=== PATIENT | female | born 1960 | race American Indian/Alaskan Native ===

== ENCOUNTER 2017-12-24 18:04 | Inpatient (IN) | payer OTHER ==
[2017-12-24] MEDS ORDERED: NACL 0.9% 1000 ML 1,000 ML ONE (18:21)
[2017-12-24] MEDS ORDERED: NACL 0.9% 1000 ML 1,000 ML IV ONE ×2 (18:22→21:04)
[2017-12-24] MEDS ORDERED: ZOFRAN IV ONE (18:22)
--- NOTE | 2017-12-24 18:26 | Emergency Department Report ---
ED Altered Mental Status HPI - General Chief Complaint: Altered Mental Status Stated Complaint: MH/1013 Time Seen by Provider: 12/24/17 18:21 Source: EMS Mode of arrival: Stretcher Limitations: Altered Mental Status - History of Present Illness Initial Comments: Patient is 57 years old female, brought in via EMS from [facility] for evaluation of altered mental status and decreased responsiveness for the last 2 days. Facility staff stated that the patient is not acting herself for the last 2 days with decreased by mouth intake. Patient was admitted for acute psychosis. Patient is not communicating so history is limited to EMS and the facility report. MD Complaint: altered mental status, decreased responsiveness -: days(s) (2 days) Severity: moderate - Related Data Home Medications Medication Instructions Recorded Confirmed Last Taken Benzonatate 200 mg PO TID PRN 12/24/17 12/24/17 Unknown Benztropine [Cogentin] 0.5 mg PO BID 12/24/17 12/24/17 Unknown Benztropine [Cogentin] 1 mg PO Q4-6H PRN 12/24/17 12/24/17 Unknown Haloperidol [Haldol] 5 mg PO Q8HR PRN 12/24/17 12/24/17 Unknown Hydroxyzine HCl [hydrOXYzine] 50 mg PO Q8HR PRN 12/24/17 12/24/17 Unknown Lisinopril [Zestril TAB] 20 mg PO QDAY 12/24/17 12/24/17 Unknown [place] Carbonate 450 mg PO BID 12/24/17 12/24/17 Unknown Loperamide [Imodium] 2 mg PO PRN PRN 12/24/17 12/24/17 Unknown Magnesium Hydroxide [Milk of 30 ml PO Q24HR PRN 12/24/17 12/24/17 Unknown Magnesia] Meloxicam [Mobic] 7.5 mg PO QAM 12/24/17 12/24/17 Unknown Promethazine [Phenergan TAB] 25 mg IM Q4-6H PRN 12/24/17 12/24/17 Unknown cloNIDine [Catapres] 0.1 mg PO Q8HR PRN 12/24/17 12/24/17 Unknown diphenhydrAMINE [Benadryl] 50 mg IM Q4-6H PRN 12/24/17 12/24/17 Unknown metFORMIN XR [Glucophage XR] 500 mg PO QAM 12/24/17 12/24/17 Unknown risperiDONE [RisperiDONE] 1 mg PO BID 12/24/17 12/24/17 Unknown traZODone [Desyrel] 50 mg PO QHS PRN 12/24/17 12/24/17 Unknown Allergies Allergy/AdvReac Type Severity Reaction Status Date / Time No Known Allergies Allergy Unverified 12/24/17 18:18 ED Review of Systems ROS: Stated complaint: MH/1013 Other details as noted in HPI Comment: Unobtainable due to pts medical conditions ED Past Medical Hx - Past Medical History Previous Medical History?: Yes Hx Hypertension: Yes Hx Diabetes: Yes Hx Psychiatric Treatment: Yes (Bipolar) - Social History Smoking Status: Unknown if ever smoked - Medications Home Medications: Home Medications Medication Instructions Recorded Confirmed Last Taken Type Benzonatate 200 mg PO TID PRN 12/24/17 12/24/17 Unknown History Benztropine [Cogentin] 0.5 mg PO BID 12/24/17 12/24/17 Unknown History Benztropine [Cogentin] 1 mg PO Q4-6H PRN 12/24/17 12/24/17 Unknown History Haloperidol [Haldol] 5 mg PO Q8HR PRN 12/24/17 12/24/17 Unknown History Hydroxyzine HCl [hydrOXYzine] 50 mg PO Q8HR PRN 12/24/17 12/24/17 Unknown History Lisinopril [Zestril TAB] 20 mg PO QDAY 12/24/17 12/24/17 Unknown History [place] Carbonate 450 mg PO BID 12/24/17 12/24/17 Unknown History Loperamide [Imodium] 2 mg PO PRN PRN 12/24/17 12/24/17 Unknown History Magnesium Hydroxide [Milk of 30 ml PO Q24HR PRN 12/24/17 12/24/17 Unknown History Magnesia] Meloxicam [Mobic] 7.5 mg PO QAM 12/24/17 12/24/17 Unknown History Promethazine [Phenergan TAB] 25 mg IM Q4-6H PRN 12/24/17 12/24/17 Unknown History cloNIDine [Catapres] 0.1 mg PO Q8HR PRN 12/24/17 12/24/17 Unknown History diphenhydrAMINE [Benadryl] 50 mg IM Q4-6H PRN 12/24/17 12/24/17 Unknown History metFORMIN XR [Glucophage XR] 500 mg PO QAM 12/24/17 12/24/17 Unknown History risperiDONE [RisperiDONE] 1 mg PO BID 12/24/17 12/24/17 Unknown History traZODone [Desyrel] 50 mg PO QHS PRN 12/24/17 12/24/17 Unknown History ED Physical Exam - General Limitations: Altered Mental Status General appearance: alert - Head Head exam: Present: atraumatic, normocephalic, normal inspection - Eye Eye exam: Present: normal appearance, PERRL - ENT ENT exam: Present: normal exam, mucous membranes dry - Neck Neck exam: Present: normal inspection, full ROM. Absent: tenderness, meningismus, lymphadenopathy, thyromegaly - Respiratory Respiratory exam: Present: normal lung sounds bilaterally. Absent: respiratory distress, wheezes, rales, rhonchi, stridor, chest wall tenderness, accessory muscle use, decreased breath sounds, prolonged expiratory - Cardiovascular Cardiovascular Exam: Present: regular rate, normal rhythm, normal heart sounds - GI/Abdominal GI/Abdominal exam: Present: soft, tenderness (diffuse tenderness), normal bowel sounds. Absent: distended, guarding, rebound, rigid, diminished bowel sounds, organomegaly, mass, bruit, pulsatile mass, hernia - Extremities Exam Extremities exam: Present: normal inspection, full ROM, normal capillary refill - Back Exam Back exam: Present: normal inspection, full ROM. Absent: tenderness, CVA tenderness (R), CVA tenderness (L), muscle spasm, paraspinal tenderness, vertebral tenderness - Neurological Exam Neurological exam: Present: alert, oriented X3, CN II-XII intact, normal gait, reflexes normal - Skin Skin exam: Present: warm, dry, intact ED Course Vital Signs 12/24/17 12/24/17 12/24/17 18:14 19:08 19:16 Temperature 99.7 F H Pulse Rate 78 75 82 Respiratory 16 16 21 Rate Blood Pressure 94/58 92/43 Blood Pressure [Right] O2 Sat by Pulse 100 98 99 Oximetry 12/24/17 12/24/17 12/24/17 19:30 19:32 19:45 Temperature Pulse Rate 79 71 Respiratory 16 15 Rate Blood Pressure 92/43 116/53 Blood Pressure 108/52 [Right] O2 Sat by Pulse 99 99 98 Oximetry 12/24/17 20:00 Temperature Pulse Rate 71 Respiratory 17 Rate Blood Pressure 113/53 Blood Pressure [Right] O2 Sat by Pulse 99 Oximetry - Lab Data Result diagrams: 12/24/17 18:31 12/24/17 18:31 Lab Results 12/24/17 12/24/17 12/24/17 Range/Units 18:19 18:19 18:31 WBC 9.8 (4.5-11.0) K/mm3 RBC 4.39 (3.65-5.03) M/mm3 Hgb 12.9 (10.1-14.3) gm/dl Hct 40.8 (30.3-42.9) % MCV 93 (79-97) fl MCH 30 (28-32) pg MCHC 32 (30-34) % RDW 13.5 (13.2-15.2) % Plt Count 241 (140-440) K/mm3 Lymph % (Auto) 14.3 (13.4-35.0) % Edd[place] % (Auto) 12.1 H (0.0-7.3) % Eos % (Auto) 1.6 (0.0-4.3) % Baso % (Auto) 1.0 (0.0-1.8) % Lymph # 1.4 (1.2-5.4) K/mm3 Eddy # 1.2 H (0.0-0.8) K/mm3 Eos # 0.2 (0.0-0.4) K/mm3 Baso # 0.1 (0.0-0.1) K/mm3 Seg Neutrophils % 71.0 H (40.0-70.0) % Seg Neutrophils # 7.0 (1.8-7.7) K/mm3 Sodium (137-145) mmol/L Potassium (3.6-5.0) mmol/L Chloride (98-107) mmol/L Carbon Dioxide (22-30) mmol/L Anion Gap mmol/L BUN (7-17) mg/dL Creatinine (0.7-1.2) mg/dL Estimated GFR ml/min BUN/Creatinine Ratio % Glucose (65-100) mg/dL Lactic Acid (0.7-2.0) mmol/L Calcium (8.4-10.2) mg/dL Total Bilirubin (0.1-1.2) mg/dL AST (5-40) units/L ALT (7-56) units/L Alkaline Phosphatase (35-129) units/L Troponin T (0.00-0.029) ng/mL Total Protein (6.3-8.2) g/dL Albumin (3.9-5) g/dL Albumin/Globulin Ratio % Lipase (13-60) units/L Urine Color Yellow (Yellow) Urine Turbidity Clear (Clear) Urine pH 5.0 (5.0-7.0) Ur Specific [place] 1.018 (1.003-1.030) Urine Protein <15 mg/dl (Negative) mg/dL Urine Glucose (UA) Neg (Negative) mg/dL Urine Ketones Tr (Negative) mg/dL Urine Blood Neg (Negative) Urine Nitrite Neg (Negative) Urine Bilirubin Neg (Negative) Urine Urobilinogen < 2.0 (<2.0) mg/dL Ur Leukocyte Esterase Neg (Negative) Urine WBC (Auto) 1.0 (0.0-6.0) /HPF Urine RBC (Auto) 1.0 (0.0-6.0) /HPF Hyaline Casts 3 /LPF Urine HCG, Qual Negative (Negative) 12/24/17 12/24/17 12/24/17 Range/Units 18:31 18:31 18:31 WBC (4.5-11.0) K/mm3 RBC (3.65-5.03) M/mm3 Hgb (10.1-14.3) gm/dl Hct (30.3-42.9) % MCV (79-97) fl MCH (28-32) pg MCHC (30-34) % RDW (13.2-15.2) % Plt Count (140-440) K/mm3 Lymph % (Auto) (13.4-35.0) % Eddy % (Auto) (0.0-7.3) % Eos % (Auto) (0.0-4.3) % Baso % (Auto) (0.0-1.8) % Lymph # (1.2-5.4) K/mm3 Eddy # (0.0-0.8) K/mm3 Eos # (0.0-0.4) K/mm3 Baso # (0.0-0.1) K/mm3 Seg Neutrophils % (40.0-70.0) % Seg Neutrophils # (1.8-7.7) K/mm3 Sodium 132 L (137-145) mmol/L Potassium 3.6 (3.6-5.0) mmol/L Chloride 96.0 L (98-107) mmol/L Carbon Dioxide 17 L (22-30) mmol/L Anion Gap 23 mmol/L BUN 49 H (7-17) mg/dL Creatinine 2.9 H (0.7-1.2) mg/dL Estimated GFR 17 ml/min BUN/Creatinine Ratio 17 % Glucose 131 H (65-100) mg/dL Lactic Acid 2.00 (0.7-2.0) mmol/L Calcium 9.2 (8.4-10.2) mg/dL Total Bilirubin 0.30 (0.1-1.2) mg/dL AST 18 (5-40) units/L ALT 31 (7-56) units/L Alkaline Phosphatase 118 (35-129) units/L Troponin T < 0.010 (0.00-0.029) ng/mL Total Protein 6.8 (6.3-8.2) g/dL Albumin 3.5 L (3.9-5) g/dL Albumin/Globulin Ratio 1.1 % Lipase 139 H (13-60) units/L Urine Color (Yellow) Urine Turbidity (Clear) Urine pH (5.0-7.0) Ur Specific [place] (1.003-1.030) Urine Protein (Negative) mg/dL Urine Glucose (UA) (Negative) mg/dL Urine Ketones (Negative) mg/dL Urine Blood (Negative) Urine Nitrite (Negative) Urine Bilirubin (Negative) Urine Urobilinogen (<2.0) mg/dL Ur Leukocyte Esterase (Negative) Urine WBC (Auto) (0.0-6.0) /HPF Urine RBC (Auto) (0.0-6.0) /HPF Hyaline Casts /LPF Urine HCG, Qual (Negative) 12/24/17 Range/Units 19:48 WBC (4.5-11.0) K/mm3 RBC (3.65-5.03) M/mm3 Hgb (10.1-14.3) gm/dl Hct (30.3-42.9) % MCV (79-97) fl MCH (28-32) pg MCHC (30-34) % RDW (13.2-15.2) % Plt Count (140-440) K/mm3 Lymph % (Auto) (13.4-35.0) % Eddy % (Auto) (0.0-7.3) % Eos % (Auto) (0.0-4.3) % Baso % (Auto) (0.0-1.8) % Lymph # (1.2-5.4) K/mm3 Eddy # (0.0-0.8) K/mm3 Eos # (0.0-0.4) K/mm3 Baso # (0.0-0.1) K/mm3 Seg Neutrophils % (40.0-70.0) % Seg Neutrophils # (1.8-7.7) K/mm3 Sodium (137-145) mmol/L Potassium (3.6-5.0) mmol/L Chloride (98-107) mmol/L Carbon Dioxide (22-30) mmol/L Anion Gap mmol/L BUN (7-17) mg/dL Creatinine (0.7-1.2) mg/dL Estimated GFR ml/min BUN/Creatinine Ratio % Glucose (65-100) mg/dL Lactic Acid 1.60 (0.7-2.0) mmol/L Calcium (8.4-10.2) mg/dL Total Bilirubin (0.1-1.2) mg/dL AST (5-40) units/L ALT (7-56) units/L Alkaline Phosphatase (35-129) units/L Troponin T (0.00-0.029) ng/mL Total Protein (6.3-8.2) g/dL Albumin (3.9-5) g/dL Albumin/Globulin Ratio % Lipase (13-60) units/L Urine Color (Yellow) Urine Turbidity (Clear) Urine pH (5.0-7.0) Ur Specific [place] (1.003-1.030) Urine Protein (Negative) mg/dL Urine Glucose (UA) (Negative) mg/dL Urine Ketones (Negative) mg/dL Urine Blood (Negative) Urine Nitrite (Negative) Urine Bilirubin (Negative) Urine Urobilinogen (<2.0) mg/dL Ur Leukocyte Esterase (Negative) Urine WBC (Auto) (0.0-6.0) /HPF Urine RBC (Auto) (0.0-6.0) /HPF Hyaline Casts /LPF Urine HCG, Qual (Negative) - EKG Data -: EKG Interpreted by In EKG shows normal: sinus rhythm Rate: normal Interpretation: no acute changes - Radiology Data Radiology results: report reviewed Referring Physician: ORLIN CHRISTENSEN Patient Name: ELLIOT CHAN Date of : 1960 Sex: Female Report Date: 2017-12-24 Report Status: Finalized Findings [facility] [address] [place] [address] Cat Scan Report Signed Patient: ELLIOT CHAN MR#: [id number] : 1960 Acct:[id number] Age/Sex: 57 / F ADM Date: 12/24/17 Loc: ED Attending Dr: Ordering Physician: ORLIN CHRISTENSEN Date of Service: 12/24/17 Procedure(s): CT abdomen pelvis wo con Accession Number(s): [id number] cc: ORLIN CHRISTENSEN FINAL REPORT EXAM: CT A/P CLINICAL INDICATIONS: Abdomen Pain FINDINGS: Unenhanced CT of the abdomen and pelvis was performed. The heart is mildly enlarged. The lung bases appear clear. Abdomen: There is fatty infiltration of the liver without suspect focal hepatic lesion. The spleen is normal in size. There is a low-density left adrenal nodule consistent with adenoma 1.4 cm. The right adrenal is unremarkable. There is no renal or ureteral calculus. No focal pancreatic lesion is seen. There is no small or large bowel obstruction. Pelvis: There is a normal appendix. There is no evidence of diverticulitis. The uterus, adnexa and urinary bladder are within normal limits. There is no free air. There is mild colonic wall thickening which could represent underdistention or colitis. IMPRESSION: CARDIOMEGALY ABDOMEN: FATTY INFILTRATION OF THE LIVER LEFT ADRENAL ADENOMA NO BOWEL OBSTRUCTION PELVIS: NORMAL APPENDIX NO EVIDENCE OF DIVERTICULITIS MILD COLONIC WALL THICKENING, UNDERDISTENTION VERSUS COLITIS Transcribed By: JORGE Dictated By: HERBER GANDARA MD Electronically Authenticated By: HERBER GANDARA MD Signed Date/Time: 12/24/171642 DD/ 42 TD/TT: 12/24/171642 Referring Physician: ORLIN CHRISTENSEN Patient Name: ELLIOT CHAN Date of : 1960 Sex: Female Report Date: 2017-12-24 Report Status: Finalized Findings [facility] [address] [place] [address] Cat Scan Report Signed Patient: ELLIOT CHAN MR#: [id number] : 1960 Acct:[id number] Age/Sex: 57 / F ADM Date: 12/24/17 Loc: ED Attending Dr: Ordering Physician: ORLIN CHRISTENSEN Date of Service: 12/24/17 Procedure(s): CT head/brain wo con Accession Number(s): [id number] cc: ORLIN CHRISTENSEN FINAL REPORT PROCEDURE: CT HEAD/BRAIN WO CON TECHNIQUE: Computerized tomography of the head was performed without contrast material. HISTORY: AMS COMPARISON: No prior studies are available for comparison. FINDINGS: Brain: Brain density appears normal. No evidence of intracranial hemorrhage. No parenchymal hemorrhage, mass lesions or mass effect are seen. No abnormal extraxial fluid collects or masses are seen. Ventricles: Ventricles are normal size and are midline. Bone Windows: No evidence of skull fracture. Paranasal sinuses: Clear Mastoid air cells: Clear IMPRESSION: Negative examination Transcribed By: DFN Dictated By: TERESA NEWBERRY MD Electronically Authenticated By: TERESA NEWBERRY MD Signed Date/Time: 12/24/171613 DD/ 13 TD/TT: 12/24/171613 - Medical Decision Making Discussed with Dr. Contreras, presented the patient to him, he agreed to admit the patient to his service. Critical care attestation.: If time is entered above; I have spent that time in minutes in the direct care of this critically ill patient, excluding procedure time. ED Disposition Clinical Impression: Altered mental status, Abdominal pain, Acute renal failure, Acute psychosis Disposition: OP ADMIT IP TO THIS HOSP Is pt being admited?: Yes Condition: Stable Referrals: CAREN CARSON MD [Primary Care Provider] - 3-5 Days
[2017-12-24] MEDS ORDERED: NACL ONE (18:32)
[2017-12-24 18:55] LABS: Basophils # (Auto) 0.1 K/mm3 (0.0-0.1); Eosinophils # (Auto) 0.2 K/mm3 (0.0-0.4); Eosinophils % (Auto) 1.6 % (0.0-4.3); Hematocrit 40.8 % (30.3-42.9); Hemoglobin 12.9 gm/dl (10.1-14.3); Lymphocytes # (Auto) 1.4 K/mm3 (1.2-5.4); Lymphocytes % (Auto) 14.3 % (13.4-35.0); Mean Corpuscular HGB Conc 32 % (30-34); Mean Corpuscular Hemoglobin 30 pg (28-32); Mean Corpuscular Volume 93 fl (79-97); Monocytes # (Auto) 1.2 K/mm3 (0.0-0.8); Monocytes % (Auto) 12.1 % (0.0-7.3); Platelet Count 241 K/mm3 (140-440); Red Blood Count 4.39 M/mm3 (3.65-5.03); Red Cell Distribution Width 13.5 % (13.2-15.2)
[2017-12-24 19:09] LABS: Alanine Aminotransferase 31 units/L (7-56); Albumin 3.5 g/dL (3.9-5); BUN/Creatinine Ratio 17; Blood Urea Nitrogen 49 mg/dL (7-17); Calcium 9.2 mg/dL (8.4-10.2); Hemolysis Index 2
[2017-12-24 19:13] LABS: Bilirubin,Urine NEG (Negative); Blood,Urine NEG (Negative); Color,Urine Yellow (Yellow); Hyaline Casts,Urine 3 /LPF; Protein,Urine <15 mg/dL mg/dL (Negative); Urobilinogen,Urine < 2.0 mg/dL (<2.0)
[2017-12-24 19:58] LABS: HCG Qualitative,Urine Negative (Negative)
--- NOTE | 2017-12-24 20:19 | Cat Scan Report ---
FINAL REPORT PROCEDURE: CT HEAD/BRAIN WO CON TECHNIQUE: Computerized tomography of the head was performed without contrast material. HISTORY: AMS COMPARISON: No prior studies are available for comparison. FINDINGS: Brain: Brain density appears normal. No evidence of intracranial hemorrhage. No parenchymal hemorrhage, mass lesions or mass effect are seen. No abnormal extraxial fluid collects or masses are seen. Ventricles: Ventricles are normal size and are midline. Bone Windows: No evidence of skull fracture. Paranasal sinuses: Clear Mastoid air cells: Clear IMPRESSION: Negative examination
--- NOTE | 2017-12-24 20:48 | Cat Scan Report ---
FINAL REPORT EXAM: CT A/P CLINICAL INDICATIONS: Abdomen Pain FINDINGS: Unenhanced CT of the abdomen and pelvis was performed. The heart is mildly enlarged. The lung bases appear clear. Abdomen: There is fatty infiltration of the liver without suspect focal hepatic lesion. The spleen is normal in size. There is a low-density left adrenal nodule consistent with adenoma 1.4 cm. The right adrenal is unremarkable. There is no renal or ureteral calculus. No focal pancreatic lesion is seen. There is no small or large bowel obstruction. Pelvis: There is a normal appendix. There is no evidence of diverticulitis. The uterus, adnexa and urinary bladder are within normal limits. There is no free air. There is mild colonic wall thickening which could represent underdistention or colitis. IMPRESSION: CARDIOMEGALY ABDOMEN: FATTY INFILTRATION OF THE LIVER LEFT ADRENAL ADENOMA NO BOWEL OBSTRUCTION PELVIS: NORMAL APPENDIX NO EVIDENCE OF DIVERTICULITIS MILD COLONIC WALL THICKENING, UNDERDISTENTION VERSUS COLITIS
[2017-12-24] MEDS ORDERED: MILK OF MAGNESIA PO PRN (21:47)
[2017-12-24] MEDS ORDERED: DULCOLAX PR PRN (21:47)
[2017-12-24] MEDS ORDERED: TYLENOL PO PRN (21:47)
[2017-12-24] MEDS ORDERED: ZOFRAN IV PRN (21:47)
--- NOTE | 2017-12-24 21:47 | History and Physical Report ---
History of Present Illness Date of examination: 12/24/17 Chief complaint: Decreased oral intake History of present illness: 57 year old -[place] female with past medical history significant for bipolar disorder, diabetes mellitus, hypertension, neuropathy brought to the emergency department from [place] for the complaints of patient was not eating and drinking, with drawn for the last 2 days. The patient was not interested to talk and history was obtained from her sister. Patient is advised to [facility] a week ago after she stopped taking her bipolar medications. Patient showed improvement. Since the last 2 days patient refused to eat and drink. Patient become more withdrawn. In the emergency department had a blood pressure was very low, and had a BUN and creatinine was elevated. Patient was resuscitated with 2 bouts of normal saline and her blood pressure normalized. Patient's admitted for the management of acute renal failure. Review of system couldn't be obtained. Past History Past Medical History: diabetes, hypertension, other (bipolar disorder, neuropathy) Past Surgical History: No surgical history Social history: full code. denies: smoking, alcohol abuse, prescription drug abuse, IV drug use Family history: CAD (Father and brother), diabetes (mother and father), other ( congestive heart failure, mother and father) Medications and Allergies Allergies Allergy/AdvReac Type Severity Reaction Status Date / Time No Known Allergies Allergy Unverified 12/24/17 18:18 Home Medications Medication Instructions Recorded Confirmed Last Taken Type Benztropine [Cogentin] 0.5 mg PO BID 12/24/17 12/24/17 Unknown History Haloperidol [Haldol] 5 mg PO Q8HR PRN 12/24/17 12/24/17 Unknown History Hydroxyzine HCl [hydrOXYzine] 50 mg PO Q8HR PRN 12/24/17 12/24/17 Unknown History [place] Carbonate 450 mg PO BID 12/24/17 12/24/17 Unknown History Magnesium Hydroxide [Milk of 30 ml PO Q24HR PRN 12/24/17 12/24/17 Unknown History Magnesia] Promethazine [Phenergan TAB] 25 mg IM Q4-6H PRN 12/24/17 12/24/17 Unknown History RX: Benzonatate 200 mg PO TID PRN 12/24/17 12/24/17 Unknown History RX: Benztropine [Cogentin] 1 mg PO Q4-6H PRN 12/24/17 12/24/17 Unknown History RX: Lisinopril [Zestril TAB] 20 mg PO QDAY 12/24/17 12/24/17 Unknown History RX: Loperamide [Imodium] 2 mg PO PRN PRN 12/24/17 12/24/17 Unknown History RX: Meloxicam [Mobic] 7.5 mg PO QAM 12/24/17 12/24/17 Unknown History RX: cloNIDine [Catapres] 0.1 mg PO Q8HR PRN 12/24/17 12/24/17 Unknown History RX: diphenhydrAMINE [Benadryl] 50 mg IM Q4-6H PRN 12/24/17 12/24/17 Unknown History RX: metFORMIN XR [Glucophage XR] 500 mg PO QAM 12/24/17 12/24/17 Unknown History RX: traZODone [Desyrel] 50 mg PO QHS PRN 12/24/17 12/24/17 Unknown History risperiDONE [RisperiDONE] 1 mg PO BID 12/24/17 12/24/17 Unknown History Active Meds: Active Medications Sodium Chloride (Nacl 0.9% 1000 Ml) 1,000 mls @ 125 mls/hr IV ONCE ONE Stop: 12/25/17 05:03 Last Admin: 12/24/17 21:20 Dose: 125 mls/hr Review of Systems ROS unobtainable: due to mental status (Patient is non-cooprative) Exam - Physical Exam Narrative exam: Not in cardiopulmonary distress. The patient is obese. Vital signs as documented. Head exam is unremarkable. No scleral icterus . Neck is without jugular venous distension, thyromegaly, or carotid bruits. Lungs are clear to auscultation. Cardiac exam reveals regular rate and Rhythm. First and second heart sounds normal. No murmurs, rubs or gallops. Abdominal exam reveals normal bowel sounds, no masses, no organomegaly and no aortic enlargement. Extremities are nonedematous and both femoral and pedal pulses are normal. [employer]TRAN[employer] SPECIALIST: Alert and oriented 3. No focal weakness. Psychiatry: patient was withdrawn. - Constitutional Vitals: Temp Pulse Resp BP Pulse Ox 99.7 F H 71 17 113/53 99 12/24/17 18:14 12/24/17 20:00 12/24/17 20:00 12/24/17 20:00 12/24/17 20:00 Results - Labs CBC & Chem 7: 12/24/17 18:31 12/24/17 18: Labs: Laboratory Last Values WBC 9.8 K/mm3 (4.5-11.0) 12/24/17 18: RBC 4.39 M/mm3 (3.65-5.03) 12/24/17 18: Hgb 12.9 gm/dl (10.1-14.3) 12/24/17: Hct 40.8 % (30.3-42.9) 12/24/17 18: MCV 93 fl (79-97) 12/24/17 18: MCH 30 pg (28-32) 12/24/17: MCHC 32 % (30-34) 12/24/17: RDW 13.5 % (13.2-15.2) 12/24/17 18: Plt Count 241 K/mm3 (140-440) 12/24/17 18: Lymph % (Auto) 14.3 % (13.4-35.0) 12/24/17 18: [place] % (Auto) 12.1 % (0.0-7.3) H 12/24/17 18: Eos % (Auto) 1.6 % (0.0-4.3) 12/24/17 18: Baso % (Auto) 1.0 % (0.0-1.8) 12/24/17 18: Lymph # 1.4 K/mm3 (1.2-5.4) 12/24/17 18: [place] # 1.2 K/mm3 (0.0-0.8) H 12/24/17 18: Eos # 0.2 K/mm3 (0.0-0.4) 12/24/17 18: Baso # 0.1 K/mm3 (0.0-0.1) 12/24/17 18: Seg Neutrophils % 71.0 % (40.0-70.0) H 12/24/17 18: Seg Neutrophils # 7.0 K/mm3 (1.8-7.7) 12/24/17 18: Sodium 132 mmol/L (137-145) L 12/24/17 18:31 Potassium 3.6 mmol/L (3.6-5.0) 12/24/17 18:31 Chloride 96.0 mmol/L (98-107) L 12/24/17 18:31 Carbon Dioxide 17 mmol/L (22-30) L 12/24/17 18:31 Anion Gap 23 mmol/L 12/24/17 18:31 BUN 49 mg/dL (7-17) H 12/24/17 18:31 Creatinine 2.9 mg/dL (0.7-1.2) H 12/24/17 18:31 Estimated GFR 17 ml/min 12/24/17 18: BUN/Creatinine Ratio 17 % 12/24/17 18:31 Glucose 131 mg/dL (65-100) H 12/24/17 18: Lactic Acid 1.60 mmol/L (0.7-2.0) 12/24/17 19:48 Calcium 9.2 mg/dL (8.4-10.2) 12/24/17 18: Total Bilirubin 0.30 mg/dL (0.1-1.2) 12/24/17 18:31 AST 18 units/L (5-40) 12/24/17 18: ALT 31 units/L (7-56) 12/24/17 18: Alkaline Phosphatase 118 units/L (35-129) 12/24/17 18: Troponin T < 0.010 ng/mL (0.00-0.029) 12/24/17 18: Total Protein 6.8 g/dL (6.3-8.2) 12/24/17 18: Albumin 3.5 g/dL (3.9-5) L 12/24/17 18:31 Albumin/Globulin Ratio 1.1 % 12/24/17 18: Lipase 139 units/L (13-60) H 12/24/17 18:31 Urine Color Yellow (Yellow) 12/24/17 18: Urine Turbidity Clear (Clear) 12/24/17 18: Urine pH 5.0 (5.0-7.0) 12/24/17 18: Ur Specific [place] 1.018 (1.003-1.030) 12/24/17 18: Urine Protein <15 mg/dl mg/dL (Negative) 12/24/17 18:19 Urine Glucose (UA) Neg mg/dL (Negative) 12/24/17 18:19 Urine Ketones Tr mg/dL (Negative) 12/24/17 18:19 Urine Blood Neg (Negative) 12/24/17 18:19 Urine Nitrite Neg (Negative) 12/24/17 18:19 Urine Bilirubin Neg (Negative) 12/24/17 18:19 Urine Urobilinogen < 2.0 mg/dL (<2.0) 12/24/17 18:19 Ur Leukocyte Esterase Neg (Negative) 12/24/17 18:19 Urine WBC (Auto) 1.0 /HPF (0.0-6.0) 12/24/17 18: Urine RBC (Auto) 1.0 /HPF (0.0-6.0) 12/24/17 18: Hyaline Casts 3 /LPF 12/24/17 18:19 Urine HCG, Qual Negative (Negative) 12/24/17 18:19 Assessment and Plan Assessment and plan: Acute renal failure Decreased oral intake Volume depletion Bipolar disorder Medication noncompliance Diabetes mellitus type 2 - Patient was resuscitated to do is to box of IV normal saline and we'll continue is 125 mL of normal saline per hour, will check BMP in the morning - Mental health consult placed, SSI - Appropriate home medications continued DVT prophylaxis - On heparin Disposition - Admit to medical floor. Advance Directives: Yes VTE prophylaxis?: Chemical Plan of care discussed with patient/family: Yes
[2017-12-24] MEDS ORDERED: D50W (25GM) Syringe IV PRN (21:50)
[2017-12-24] MEDS: NOVOLOG SUB-Q SCH (22:10)
[2017-12-24] MEDS ORDERED: COLACE ONE (22:21)
[2017-12-24] MEDS ORDERED: PEPCID ONE (22:21)
[2017-12-24] MEDS ORDERED: HEPARIN ONE (22:21)
[2017-12-24] MEDS ORDERED: HALDOL PO PRN (22:29)
[2017-12-24] MEDS ORDERED: DESYREL PO PRN (22:29)
[2017-12-24] MEDS ORDERED: ATARAX PO PRN (22:29)
[2017-12-24] MEDS ORDERED: TESSALON PERLES PO PRN (22:29)
[2017-12-24] MEDS ORDERED: IMODIUM PO PRN (22:29)
[2017-12-24] MEDS: COLACE PO SCH (22:58)
[2017-12-24] MEDS: HEPARIN SUB-Q SCH (22:58)
[2017-12-24] MEDS: PEPCID PO SCH (22:59)
[2017-12-25 03:28] LABS: Basophils # (Auto) 0.1 K/mm3 (0.0-0.1); Basophils % (Auto) 1.1 % (0.0-1.8); Eosinophils # (Auto) 0.3 K/mm3 (0.0-0.4); Eosinophils % (Auto) 2.9 % (0.0-4.3); Hematocrit 36.8 % (30.3-42.9); Hemoglobin 12.2 gm/dl (10.1-14.3); Lymphocytes # (Auto) 2.2 K/mm3 (1.2-5.4); Lymphocytes % (Auto) 22.8 % (13.4-35.0); Mean Corpuscular HGB Conc 33 % (30-34); Mean Corpuscular Hemoglobin 30 pg (28-32); Mean Corpuscular Volume 91 fl (79-97); Monocytes # (Auto) 1.1 K/mm3 (0.0-0.8); Monocytes % (Auto) 10.8 % (0.0-7.3); Platelet Count 209 K/mm3 (140-440); Red Blood Count 4.06 M/mm3 (3.65-5.03); Red Cell Distribution Width 13.5 % (13.2-15.2)
[2017-12-25 03:37] LABS: Calcium 8.6 mg/dL (8.4-10.2)
[2017-12-25] MEDS: NACL 0.9% 1000 ML 1,000 ML IV SCH ×2 (04:52→19:54)
[2017-12-25] MEDS: HEPARIN SUB-Q SCH ×3 (06:19→22:05)
[2017-12-25] MEDS: NOVOLOG SUB-Q SCH ×4 (08:02→22:03)
[2017-12-25] MEDS: COLACE PO SCH ×2 (09:19→22:24)
[2017-12-25] MEDS: PEPCID PO SCH (09:19)
[2017-12-25] MEDS ORDERED: RisperDAL PO SCH (10:00)
[2017-12-25] MEDS ORDERED: COGENTIN PO SCH (10:00)
[2017-12-25] MEDS ORDERED: ESKALITH PO SCH (10:00)
--- NOTE | 2017-12-25 10:03 | Consultation ---
History of Present Illness - Reason for Consult Consult date: 12/25/17 Reason for consult: Mental Health Evaluation Requesting physician: JOHNIE MARTIN - Chief Complaint Chief complaint: "The patient is nonverbal" - History of Present Psychiatric Illness 57 years old female, brought in via EMS from [facility] facility for evaluation of altered mental status and decreased responsiveness for the last 2 days. Today the patient is calm, but non verbal and will not respond to commands. Per the record, the patient has not been eating or drinking the past 2 days. Medications and Allergies Allergies Allergy/AdvReac Type Severity Reaction Status Date / Time No Known Allergies Allergy Unverified 12/24/17 18:18 Home Medications Medication Instructions Recorded Confirmed Last Taken Type Benzonatate 200 mg PO TID PRN 12/24/17 12/24/17 Unknown History Benztropine [Cogentin] 0.5 mg PO BID 12/24/17 12/24/17 Unknown History Benztropine [Cogentin] 1 mg PO Q4-6H PRN 12/24/17 12/24/17 Unknown History Haloperidol [Haldol] 5 mg PO Q8HR PRN 12/24/17 12/24/17 Unknown History Hydroxyzine HCl [hydrOXYzine] 50 mg PO Q8HR PRN 12/24/17 12/24/17 Unknown History Lisinopril [Zestril TAB] 20 mg PO QDAY 12/24/17 12/24/17 Unknown History [place] Carbonate 450 mg PO BID 12/24/17 12/24/17 Unknown History Loperamide [Imodium] 2 mg PO PRN PRN 12/24/17 12/24/17 Unknown History Magnesium Hydroxide [Milk of 30 ml PO Q24HR PRN 12/24/17 12/24/17 Unknown History Magnesia] Meloxicam [Mobic] 7.5 mg PO QAM 12/24/17 12/24/17 Unknown History Promethazine [Phenergan TAB] 25 mg IM Q4-6H PRN 12/24/17 12/24/17 Unknown History cloNIDine [Catapres] 0.1 mg PO Q8HR PRN 12/24/17 12/24/17 Unknown History diphenhydrAMINE [Benadryl] 50 mg IM Q4-6H PRN 12/24/17 12/24/17 Unknown History metFORMIN XR [Glucophage XR] 500 mg PO QAM 12/24/17 12/24/17 Unknown History risperiDONE [RisperiDONE] 1 mg PO BID 12/24/17 12/24/17 Unknown History traZODone [Desyrel] 50 mg PO QHS PRN 12/24/17 12/24/17 Unknown History Active Meds: Active Medications Acetaminophen (Tylenol) 650 mg PO Q4H PRN PRN Reason: Pain MILD(1-3)/Fever >100.5/SINGH Benzonatate (Tessalon Perles) 200 mg PO TID PRN PRN Reason: Cough Bisacodyl (Dulcolax) 10 mg [place] QDAY PRN PRN Reason: Constipation unrelieved by MOM Dextrose (D50w (25gm) Syringe) 50 ml IV PRN PRN PRN Reason: Hypoglycemia Diphenhydramine HCl (Benadryl) 50 mg IM Q4H PRN PRN Reason: Extrapyramidal Effects Docusate Sodium (Colace) 100 mg PO BID [facility] Last Admin: 12/25/17 09:19 Dose: Not Given Famotidine (Pepcid) 20 mg PO QAM [facility] Last Admin: 12/25/17 09:19 Dose: Not Given Haloperidol (Haldol) 5 mg PO Q8H PRN PRN Reason: Psychosis Heparin Sodium (Porcine) (Heparin) 5,000 unit SUB-Q Q8HR [facility] Last Admin: 12/25/17 06:19 Dose: 5,000 unit Hydroxyzine HCl (Atarax) 50 mg PO Q8H PRN PRN Reason: Anxiety Sodium Chloride (Nacl 0.9% 1000 Ml) 1,000 mls @ 125 mls/hr IV DIRECT [facility] Last Admin: 12/25/17 04:52 Dose: 125 mls/hr Insulin Aspart (Novolog) 0 units SUB-Q ACHS [facility] PRN Reason: Protocol Last Admin: 12/25/17 08:02 Dose: Not Given Loperamide HCl (Imodium) 2 mg PO Q3H PRN PRN Reason: Loose BM Magnesium Hydroxide (Milk Of Magnesia) 30 ml PO Q4H PRN PRN Reason: Constipation Ondansetron HCl (Zofran) 4 mg IV Q8H PRN PRN Reason: N/V unrelieved by Reglan Trazodone HCl (Desyrel) 50 mg PO QHS PRN PRN Reason: Sleep Past psychiatric history - Past Medical History Past Medical History: diabetes, hypertension Past Surgical History: Other (Unable to obtain) - past Psychiatric treatment and history psychiatric treatment history: A patient at [facility] prior to her admission to [facility]. Unable to obtain a fam psy hx. - Social History Social history: other (Unable to obtain ) Mental Status Exam - Vital signs Last Vital Signs Temp 99.2 F 12/25/17 08:41 Pulse 80 12/25/17 08:41 Resp 20 12/25/17 08:41 BP 141/79 12/25/17 08:41 Pulse Ox 100 12/25/17 08:41 - Exam Narrative exam: Unable to complete the MSE because of the patient condition. Results Result Diagrams: 12/25/17 02:58 12/25/17 02:58 Abnormal lab results 12/24/17 12/24/17 12/24/17 Range/Units 18:31 18:31 18:31 [place] % (Auto) 12.1 H (0.0-7.3) % [place] # 1.2 H (0.0-0.8) K/mm3 Seg Neutrophils % 71.0 H (40.0-70.0) % Sodium 132 L (137-145) mmol/L Chloride 96.0 L (98-107) mmol/L Carbon Dioxide 17 L (22-30) mmol/L BUN 49 H (7-17) mg/dL Creatinine 2.9 H (0.7-1.2) mg/dL Glucose 131 H (65-100) mg/dL POC Glucose (70-105) Albumin 3.5 L (3.9-5) g/dL Lipase 139 H (13-60) units/L 12/24/17 12/25/17 12/25/17 Range/Units 22:12 02:58 02:58 [place] % (Auto) 10.8 H (0.0-7.3) % [place] # 1.1 H (0.0-0.8) K/mm3 Seg Neutrophils % (40.0-70.0) % Sodium (137-145) mmol/L Chloride (98-107) mmol/L Carbon Dioxide 18 L (22-30) mmol/L BUN 48 H (7-17) mg/dL Creatinine 3.2 H (0.7-1.2) mg/dL Glucose 122 H (65-100) mg/dL POC Glucose 142 H (70-105) Albumin (3.9-5) g/dL Lipase (13-60) units/L 12/25/17 Range/Units 08:04 [place] % (Auto) (0.0-7.3) % [place] # (0.0-0.8) K/mm3 Seg Neutrophils % (40.0-70.0) % Sodium (137-145) mmol/L Chloride (98-107) mmol/L Carbon Dioxide (22-30) mmol/L BUN (7-17) mg/dL Creatinine (0.7-1.2) mg/dL Glucose (65-100) mg/dL POC Glucose 145 H (70-105) Albumin (3.9-5) g/dL Lipase (13-60) units/L All other labs normal. Assessment and Plan Assessment and plan: Impression: Per the record the patient has an hx of Bipolar DO. Possible catatonia. Today the patient is calm, but non verbal and will not respond to commands. Cr trending up 3.2. Medical: AMS Recommendation/Plan: D/C'd psy medications at this time. Will assess patient daily to determine when to start her psy medications. Check [place] levels STAT , patient Cr is elevated. Ativan challenge for possible catatonia in 24 hours once abnormal labs are addressed by the medical staff. Recommend delirium precautions below: 1. Frequently reorient patient and involve him/her in their care (simple explanations of procedures, tests, medications). 2. Lights on and shades open during daytime hours. 3. Try to avoid unnecessary interruptions to sleep during nighttime hours. 4. Obtain glasses, hearing aids from home if patient uses these at baseline. 5. Avoid medications that may exacerbate delirium (especially narcotics, barbiturates, ambien, lunesta, benzos, and medications with excessive anticholinergic properties). If possible, use another medication for pain.
--- NOTE | 2017-12-25 12:01 | Progress Note ---
Assessment and Plan Assessment and plan: 57 year old -[place]ish female with past medical history significant for bipolar disorder, diabetes mellitus, hypertension, neuropathy brought to the emergency department from [facility] for the complaints of patient was not eating and drinking, with drawn for the last 2 days.was hyponsive and dehydrated upon arrival Acute renal failure/vasomotor nephropathy continue IVF, renal consult Catatonia, Bipolar disorder mental health input appreciated, optimize meds per them continue 1013 Hypovolemia continue IVF Anorexia hopefully psych meds should stimulate her appetite Diabetes mellitus type 2 SSI [place] toxicity elevated Li level, due to poor renal clearance Li has been dc DVT prophylaxis chemical History Interval history: Patient is able to communicate, says she will try to eat. RN states that she has spit out all food and meds, and usually turns her face away and does not communicate Review of systems Constitutional: No fevers, no malaise, no joint pains CVS: No chest pain, no orthopnea, no dyspnea on exertion, no pedal edema GI: No abdominal pain, no diarrhea, no vomiting, no constipation Respiratory: No shortness of breath, no wheezing, no coughing Hospitalist Physical - Physical exam Narrative exam: General.: Appears well, no distress, nontoxic HEENT: Mdry mucous membranes, extraocular muscles intact, no lymphadenopathy Neck: supple Cardiac: S1-S2 heard Lungs: clear to auscultation bilaterally Abdomen: soft , nontender, nondistended, bowel sounds positive Extremities: no edema clubbing or cyanosis Skin: no rash or lesions Neurologic: no gross focal deficits Psych: withdrawn, flat affect - Constitutional Vitals: Temp Pulse Resp BP Pulse Ox 99.2 F 80 20 141/79 100 12/25/17 08:41 12/25/17 08:41 12/25/17 08:41 12/25/17 08:41 12/25/17 08:41 Results - Labs CBC & Chem 7: 12/25/17 02:58 12/25/17 02:58 Labs: Laboratory Last Values WBC 9.8 K/mm3 (4.5-11.0) 12/25/17 02:58 RBC 4.06 M/mm3 (3.65-5.03) 12/25/17 02:58 Hgb 12.2 gm/dl (10.1-14.3) 12/25/17 02:58 Hct 36.8 % (30.3-42.9) 12/25/17 02:58 MCV 91 fl (79-97) 12/25/17 02:58 MCH 30 pg (28-32) 12/25/17 02:58 MCHC 33 % (30-34) 12/25/17 02:58 RDW 13.5 % (13.2-15.2) 12/25/17 02:58 Plt Count 209 K/mm3 (140-440) 12/25/17 02:58 Lymph % (Auto) 22.8 % (13.4-35.0) 12/25/17 02:58 [place] % (Auto) 10.8 % (0.0-7.3) H 12/25/17 02:58 Eos % (Auto) 2.9 % (0.0-4.3) 12/25/17 02:58 Baso % (Auto) 1.1 % (0.0-1.8) 12/25/17 02:58 Lymph # 2.2 K/mm3 (1.2-5.4) 12/25/17 02:58 [place] # 1.1 K/mm3 (0.0-0.8) H 12/25/17 02:58 Eos # 0.3 K/mm3 (0.0-0.4) 12/25/17 02:58 Baso # 0.1 K/mm3 (0.0-0.1) 12/25/17 02:58 Seg Neutrophils % 62.4 % (40.0-70.0) 12/25/17 02:58 Seg Neutrophils # 6.1 K/mm3 (1.8-7.7) 12/25/17 02:58 Sodium 137 mmol/L (137-145) 12/25/17 02:58 Potassium 4.5 mmol/L (3.6-5.0) D 12/25/17 02:58 Chloride 100.9 mmol/L (98-107) 12/25/17 02:58 Carbon Dioxide 18 mmol/L (22-30) L 12/25/17 02:58 Anion Gap 23 mmol/L 12/25/17 02:58 BUN 48 mg/dL (7-17) H 12/25/17 02:58 Creatinine 3.2 mg/dL (0.7-1.2) H 12/25/17 02:58 Estimated GFR 18 ml/min 12/25/17 02:58 BUN/Creatinine Ratio 15 % 12/25/17 02:58 Glucose 122 mg/dL (65-100) H 12/25/17 02:58 POC Glucose 145 (70-105) H 12/25/17 08:04 Lactic Acid 1.60 mmol/L (0.7-2.0) 12/24/17 19:48 Calcium 8.6 mg/dL (8.4-10.2) 12/25/17 02:58 Total Bilirubin 0.30 mg/dL (0.1-1.2) 12/24/17 18:31 AST 18 units/L (5-40) 12/24/17 18:31 ALT 31 units/L (7-56) 12/24/17 18:31 Alkaline Phosphatase 118 units/L (35-129) 12/24/17 18:31 Troponin T < 0.010 ng/mL (0.00-0.029) 12/24/17 18:31 Total Protein 6.8 g/dL (6.3-8.2) 12/24/17 18:31 Albumin 3.5 g/dL (3.9-5) L 12/24/17 18:31 Albumin/Globulin Ratio 1.1 % 12/24/17 18:31 Lipase 139 units/L (13-60) H 12/24/17 18:31 Urine Color Yellow (Yellow) 12/24/17 18:19 Urine Turbidity Clear (Clear) 12/24/17 18:19 Urine pH 5.0 (5.0-7.0) 12/24/17 18:19 Ur Specific [place] 1.018 (1.003-1.030) 12/24/17 18:19 Urine Protein <15 mg/dl mg/dL (Negative) 12/24/17 18:19 Urine Glucose (UA) Neg mg/dL (Negative) 12/24/17 18:19 Urine Ketones Tr mg/dL (Negative) 12/24/17 18:19 Urine Blood Neg (Negative) 12/24/17 18:19 Urine Nitrite Neg (Negative) 12/24/17 18:19 Urine Bilirubin Neg (Negative) 12/24/17 18:19 Urine Urobilinogen < 2.0 mg/dL (<2.0) 12/24/17 18:19 Ur Leukocyte Esterase Neg (Negative) 12/24/17 18:19 Urine WBC (Auto) 1.0 /HPF (0.0-6.0) 12/24/17 18:19 Urine RBC (Auto) 1.0 /HPF (0.0-6.0) 12/24/17 18:19 Hyaline Casts 3 /LPF 12/24/17 18:19 Urine HCG, Qual Negative (Negative) 12/24/17 18:19
--- NOTE | 2017-12-25 14:47 | Consultation ---
History of Present Illness - Reason for Consult Consult date: 12/25/17 acute renal failure Requesting physician: NILAY BUTCHER - History of Present Illness 57-year-old lady who is not known to me brought from [facility] due to altered mental status. Patient was admitted for psychosis" about a week ago after stopping her psychotropic medications. Over the last 2 days she has become less responsive and not acting herself with poor oral intake and so was brought for evaluation. In the ER blood pressure was as low as 92/43 mmHg. She was given saline boluses and admitted to the medical floor. On review of her medications, patient was on meloxicam, lithium, lisinopril and metformin. Past History Past Medical History: diabetes, hypertension, other (bipolar disorder) Past Surgical History: Other (Unable to obtain) Social history: other (Unable to obtain ) Family history: CAD (Father and brother), diabetes (mother and father), other ( congestive heart failure, mother and father) Medications and Allergies Allergies Allergy/AdvReac Type Severity Reaction Status Date / Time No Known Allergies Allergy Unverified 12/24/17 18:18 Home Medications Medication Instructions Recorded Confirmed Last Taken Type Benzonatate 200 mg PO TID PRN 12/24/17 12/24/17 Unknown History Benztropine [Cogentin] 0.5 mg PO BID 12/24/17 12/24/17 Unknown History Benztropine [Cogentin] 1 mg PO Q4-6H PRN 12/24/17 12/24/17 Unknown History Haloperidol [Haldol] 5 mg PO Q8HR PRN 12/24/17 12/24/17 Unknown History Hydroxyzine HCl [hydrOXYzine] 50 mg PO Q8HR PRN 12/24/17 12/24/17 Unknown History Lisinopril [Zestril TAB] 20 mg PO QDAY 12/24/17 12/24/17 Unknown History [place] Carbonate 450 mg PO BID 12/24/17 12/24/17 Unknown History Loperamide [Imodium] 2 mg PO PRN PRN 12/24/17 12/24/17 Unknown History Magnesium Hydroxide [Milk of 30 ml PO Q24HR PRN 12/24/17 12/24/17 Unknown History Magnesia] Meloxicam [Mobic] 7.5 mg PO QAM 12/24/17 12/24/17 Unknown History Promethazine [Phenergan TAB] 25 mg IM Q4-6H PRN 12/24/17 12/24/17 Unknown History cloNIDine [Catapres] 0.1 mg PO Q8HR PRN 12/24/17 12/24/17 Unknown History diphenhydrAMINE [Benadryl] 50 mg IM Q4-6H PRN 12/24/17 12/24/17 Unknown History metFORMIN XR [Glucophage XR] 500 mg PO QAM 12/24/17 12/24/17 Unknown History risperiDONE [RisperiDONE] 1 mg PO BID 12/24/17 12/24/17 Unknown History traZODone [Desyrel] 50 mg PO QHS PRN 12/24/17 12/24/17 Unknown History Active Meds: Active Medications Acetaminophen (Tylenol) 650 mg PO Q4H PRN PRN Reason: Pain MILD(1-3)/Fever >100.5/SINGH Benzonatate (Tessalon Perles) 200 mg PO TID PRN PRN Reason: Cough Bisacodyl (Dulcolax) 10 mg [place] QDAY PRN PRN Reason: Constipation unrelieved by MOM Dextrose (D50w (25gm) Syringe) 50 ml IV PRN PRN PRN Reason: Hypoglycemia Diphenhydramine HCl (Benadryl) 50 mg IM Q4H PRN PRN Reason: Extrapyramidal Effects Docusate Sodium (Colace) 100 mg PO BID [facility] Last Admin: 12/25/17 09:19 Dose: Not Given Famotidine (Pepcid) 20 mg PO QAM [facility] Last Admin: 12/25/17 09:19 Dose: Not Given Haloperidol (Haldol) 5 mg PO Q8H PRN PRN Reason: Psychosis Heparin Sodium (Porcine) (Heparin) 5,000 unit SUB-Q Q8HR [facility] Last Admin: 12/25/17 06:19 Dose: 5,000 unit Hydroxyzine HCl (Atarax) 50 mg PO Q8H PRN PRN Reason: Anxiety Sodium Chloride (Nacl 0.9% 1000 Ml) 1,000 mls @ 125 mls/hr IV DIRECT [facility] Last Admin: 12/25/17 04:52 Dose: 125 mls/hr Insulin Aspart (Novolog) 0 units SUB-Q ACHS [facility] PRN Reason: Protocol Last Admin: 12/25/17 08:02 Dose: Not Given Loperamide HCl (Imodium) 2 mg PO Q3H PRN PRN Reason: Loose BM Magnesium Hydroxide (Milk Of Magnesia) 30 ml PO Q4H PRN PRN Reason: Constipation Ondansetron HCl (Zofran) 4 mg IV Q8H PRN PRN Reason: N/V unrelieved by Reglan Trazodone HCl (Desyrel) 50 mg PO QHS PRN PRN Reason: Sleep Review of Systems ROS unobtainable: due to mental status Exam - Vital Signs Vital signs: Vital Signs Temp Pulse Resp BP Pulse Ox 99.7 F H 78 16 94/58 100 12/24/17 18:14 12/24/17 18:14 12/24/17 18:14 12/24/17 18:14 12/24/17 18:14 - Physical Exam Narrative exam: Obese middle-aged, comfortably lying in bed in no acute distress HEENT: Not cooperative with the exam Neck: Supple, no venous distention CVS: S1S2 RRR with no murmur, rub or gallop Chest: Clear to auscultation Abdomen: Protuberant, soft, nontender, no organomegaly, bowel sounds are present Extremities: No edema Neuro: Awakens but barely speaks and does not answer questions, was lying face down and after much urging, did turn around Results - Lab Results 12/25/17 02:58 12/25/17 02:58 Most recent lab results Calcium 8.6 mg/dL (8.4-10.2) 12/25/17 02:58 Assessment and Plan - Patient Problems (1) Other acute kidney failure Current Visit: Yes Status: Acute Plan to address problem: Pre-renal azotemia versus acute tubular necrosis secondary to hypotension versus drug induced. Patient was on meloxicam and also lithium. Patient also received lisinopril with borderline low blood pressures and this combination could have caused kidney injury. Check fractional excretion of sodium. Check lithium level. Follow electrolytes and renal function. Hold these incriminating medications. Further management depending on clinical course (2) Other hypotension Current Visit: Yes Status: Acute Plan to address problem: Hold hypertensive medications and follow blood pressure (3) Metabolic acidosis Current Visit: Yes Status: Acute Plan to address problem: Follow bicarbonate level. Start by mouth sodium bicarbonate (4) Encephalopathy Current Visit: Yes Status: Acute Plan to address problem: Monitor mental status closely (5) Type 2 diabetes mellitus without complications Current Visit: Yes Status: Acute Plan to address problem: Blood sugar management by primary attending. Need to hold metformin with GFR less than 30 mls/min. We'll consider restarting when kidney function improves (6) Essential (primary) hypertension Current Visit: Yes Status: Acute Plan to address problem: Agree with holding Cabrera-inhibitor and then follow blood pressure.
[2017-12-25 22:55] LABS: Creatinine,Urine 89.7 mg/dL (0.1-20.0)
[2017-12-26] MEDS: NACL 0.9% 1000 ML 1,000 ML IV SCH ×2 (05:17→14:07)
[2017-12-26] MEDS: HEPARIN SUB-Q SCH ×3 (05:37→22:35)
[2017-12-26 05:44] LABS: Calcium 8.6 mg/dL (8.4-10.2)
[2017-12-26] MEDS: NOVOLOG SUB-Q SCH ×4 (07:30→22:33)
--- NOTE | 2017-12-26 09:00 | Progress Note ---
Assessment and Plan - Patient Problems (1) Other acute kidney failure Current Visit: Yes Status: Acute Plan to address problem: Pre-renal azotemia versus acute tubular necrosis secondary to hypotension versus drug induced. Patient was on meloxicam and also lithium. Patient also received lisinopril with borderline low blood pressures and this combination could have caused kidney injury. Serum level was high. Follow electrolytes and renal function. Incriminating medications have been stopped. Further management depending on clinical course (2) Other hypotension Current Visit: Yes Status: Acute Plan to address problem: Hold hypertensive medications and follow blood pressure (3) Metabolic acidosis Current Visit: Yes Status: Acute Plan to address problem: Follow bicarbonate level. Continue by mouth sodium bicarbonate (4) Encephalopathy Current Visit: Yes Status: Acute Plan to address problem: Monitor mental status closely (5) Type 2 diabetes mellitus without complications Current Visit: Yes Status: Acute Plan to address problem: Blood sugar management by primary attending. Need to hold metformin with GFR less than 30 mls/min. We'll consider restarting when kidney function improves (6) Essential (primary) hypertension Current Visit: Yes Status: Acute Plan to address problem: Blood pressure is stable. Continue holding Cabrera-inhibitor and then follow blood pressure. Subjective Date of service: 12/26/17 Principal diagnosis: acute kidney injury, lithium toxicity Interval history: Patient seen lying in bed. Says a few words this morning but not conversing or following commands. Sister at the bedside and gave some history Objective - Exam Narrative Exam: Obese middle-aged, comfortably lying in bed in no acute distress HEENT: Not cooperative with the exam Neck: Supple, no venous distention CVS: S1S2 RRR with no murmur, rub or gallop Chest: Clear to auscultation Abdomen: Protuberant, soft, nontender, no organomegaly, bowel sounds are present Extremities: No edema Neuro: Awakens but barely speaks and does not answer questions, was lying face down and after much urging, did turn around - Lab 12/25/17 02:58 12/26/17 04:41 Most recent lab results Calcium 8.6 mg/dL (8.4-10.2) 12/26/17 04:41 Phosphorus 2.10 mg/dL (2.5-4.5) L 12/26/17 04:41 Magnesium 1.60 mg/dL (1.7-2.3) L 12/26/17 04:41 Urine Creatinine 89.7 mg/dL (0.1-20.0) H 12/25/17 22:20 Urine Sodium 81 mmol/L 12/25/17 22:20 Urine Total Protein 21 mg/dL (5-11.8) H 12/25/17 22:20
[2017-12-26] MEDS ORDERED: MAGNESIUM SULFATE 2GM/50ML 2 GM/50 ML BAG IV ONE (10:00)
[2017-12-26] MEDS: COLACE PO SCH ×2 (10:07→22:35)
[2017-12-26] MEDS: PHOS-NAK PO SCH ×3 (10:07→22:35)
[2017-12-26] MEDS: PEPCID PO SCH (10:07)
--- NOTE | 2017-12-26 12:26 | Progress Note ---
Assessment and Plan Assessment and plan: 57 year old -Japanese female with past medical history significant for bipolar disorder, diabetes mellitus, hypertension, neuropathy brought to the emergency department from [facility] for the complaints of patient was not eating and drinking, with drawn for the last 2 days.was hyponsive and dehydrated upon arrival Acute renal failure/vasomotor nephropathy continue IVF, renal consult appreciated, resolving Catatonia, Bipolar disorder mental health input appreciated, optimize meds per them continue 1013, likely will try ativan challenge Hypovolemia continue IVF hypomagnesemia, hypophosphatemia -replete Anorexia hopefully psych meds should stimulate her appetite Diabetes mellitus type 2 SSI [place] toxicity elevated Li level, due to poor renal clearance Li has been dc, continue IVF, recheck levels in am DVT prophylaxis chemical History Interval history: Patient is able to communicate, says she will try to eat. RN states that she has spit out all food and meds, and usually turns her face away and does not communicate Review of systems Constitutional: No fevers, no malaise, no joint pains CVS: No chest pain, no orthopnea, no dyspnea on exertion, no pedal edema GI: No abdominal pain, no diarrhea, no vomiting, no constipation Respiratory: No shortness of breath, no wheezing, no coughing Hospitalist Physical - Physical exam Narrative exam: General.: Appears well, no distress, nontoxic HEENT: Mdry mucous membranes, extraocular muscles intact, no lymphadenopathy Neck: supple Cardiac: S1-S2 heard Lungs: clear to auscultation bilaterally Abdomen: soft , nontender, nondistended, bowel sounds positive Extremities: no edema clubbing or cyanosis Skin: no rash or lesions Neurologic: no gross focal deficits Psych: withdrawn, flat affect - Constitutional Vitals: Temp Pulse Resp BP Pulse Ox 97.5 F L 82 18 146/74 100 12/25/17 19:05 12/25/17 19:05 12/25/17 19:05 12/25/17 19:05 12/25/17 19:05 Results - Labs CBC & Chem 7: 12/25/17 02:58 12/26/17 04:41 Labs: Laboratory Last Values WBC 9.8 K/mm3 (4.5-11.0) 12/25/17 02:58 RBC 4.06 M/mm3 (3.65-5.03) 12/25/17 02:58 Hgb 12.2 gm/dl (10.1-14.3) 12/25/17 02:58 Hct 36.8 % (30.3-42.9) 12/25/17 02:58 MCV 91 fl (79-97) 12/25/17 02:58 MCH 30 pg (28-32) 12/25/17 02:58 MCHC 33 % (30-34) 12/25/17 02:58 RDW 13.5 % (13.2-15.2) 12/25/17 02:58 Plt Count 209 K/mm3 (140-440) 12/25/17 02:58 Lymph % (Auto) 22.8 % (13.4-35.0) 12/25/17 02:58 [place] % (Auto) 10.8 % (0.0-7.3) H 12/25/17 02:58 Eos % (Auto) 2.9 % (0.0-4.3) 12/25/17 02:58 Baso % (Auto) 1.1 % (0.0-1.8) 12/25/17 02:58 Lymph # 2.2 K/mm3 (1.2-5.4) 12/25/17 02:58 [place] # 1.1 K/mm3 (0.0-0.8) H 12/25/17 02:58 Eos # 0.3 K/mm3 (0.0-0.4) 12/25/17 02:58 Baso # 0.1 K/mm3 (0.0-0.1) 12/25/17 02:58 Seg Neutrophils % 62.4 % (40.0-70.0) 12/25/17 02:58 Seg Neutrophils # 6.1 K/mm3 (1.8-7.7) 12/25/17 02:58 Sodium 145 mmol/L (137-145) D 12/26/17 04:41 Potassium 3.6 mmol/L (3.6-5.0) 12/26/17 04:41 Chloride 107.5 mmol/L (98-107) H 12/26/17 04:41 Carbon Dioxide 20 mmol/L (22-30) L 12/26/17 04:41 Anion Gap 21 mmol/L 12/26/17 04:41 BUN 25 mg/dL (7-17) H 12/26/17 04:41 Creatinine 1.2 mg/dL (0.7-1.2) D 12/26/17 04:41 Estimated GFR 56 ml/min 12/26/17 04:41 BUN/Creatinine Ratio 21 % 12/26/17 04:41 Glucose 148 mg/dL (65-100) H 12/26/17 04:41 POC Glucose 152 (70-105) H 12/26/17 11:31 Lactic Acid 1.60 mmol/L (0.7-2.0) 12/24/17 19:48 Calcium 8.6 mg/dL (8.4-10.2) 12/26/17 04:41 Phosphorus 2.10 mg/dL (2.5-4.5) L 12/26/17 04:41 Magnesium 1.60 mg/dL (1.7-2.3) L 12/26/17 04:41 Total Bilirubin 0.30 mg/dL (0.1-1.2) 12/24/17 18:31 AST 18 units/L (5-40) 12/24/17 18:31 ALT 31 units/L (7-56) 12/24/17 18:31 Alkaline Phosphatase 118 units/L (35-129) 12/24/17 18:31 Total Creatine Kinase 96 units/L (30-135) 12/26/17 04:41 Troponin T < 0.010 ng/mL (0.00-0.029) 12/24/17 18:31 Total Protein 6.8 g/dL (6.3-8.2) 12/24/17 18:31 Albumin 3.5 g/dL (3.9-5) L 12/24/17 18:31 Albumin/Globulin Ratio 1.1 % 12/24/17 18:31 Lipase 139 units/L (13-60) H 12/24/17 18:31 Urine Color Yellow (Yellow) 12/24/17 18:19 Urine Turbidity Clear (Clear) 12/24/17 18:19 Urine pH 5.0 (5.0-7.0) 12/24/17 18:19 Ur Specific [place] 1.018 (1.003-1.030) 12/24/17 18:19 Urine Protein <15 mg/dl mg/dL (Negative) 12/24/17 18:19 Urine Glucose (UA) Neg mg/dL (Negative) 12/24/17 18:19 Urine Ketones Tr mg/dL (Negative) 12/24/17 18:19 Urine Blood Neg (Negative) 12/24/17 18:19 Urine Nitrite Neg (Negative) 12/24/17 18:19 Urine Bilirubin Neg (Negative) 12/24/17 18:19 Urine Urobilinogen < 2.0 mg/dL (<2.0) 12/24/17 18:19 Ur Leukocyte Esterase Neg (Negative) 12/24/17 18:19 Urine WBC (Auto) 1.0 /HPF (0.0-6.0) 12/24/17 18:19 Urine RBC (Auto) 1.0 /HPF (0.0-6.0) 12/24/17 18:19 Hyaline Casts 3 /LPF 12/24/17 18:19 Urine Creatinine 89.7 mg/dL (0.1-20.0) H 12/25/17 22:20 Urine Sodium 81 mmol/L 12/25/17 22:20 Urine Total Protein 21 mg/dL (5-11.8) H 12/25/17 22:20 Urine HCG, Qual Negative (Negative) 12/24/17 18:19 [place] 2.2 mmol/L (0.0-1.2) H* 12/25/17 14:43
--- NOTE | 2017-12-26 13:49 | Progress Note ---
Subjective - Reason for Consult Consult date: 12/26/17 Reason for consult: Psychiatry Follow-up - Chief Complaint Chief complaint: "The patient mumbles" 57 years old female, brought in via EMS from [facility] facility for evaluation of altered mental status and decreased responsiveness for the last 2 days. Today the patient is calm, but mumbles when her name is called. She still does not respond to commands. Mental Status Exam - Vital signs Last Vital Signs Temp 97.5 F L 12/25/17 19:05 Pulse 82 12/25/17 19:05 Resp 18 12/25/17 19:05 BP 146/74 12/25/17 19:05 Pulse Ox 100 12/25/17 19:05 - Exam Narrative exam: Unable to complete the MSE because of the patient's condition. Assessment and Plan Impression: Per the record the patient has an hx of Bipolar DO. [place] Toxicity 2.2. R/O Catatonia. Today the patient is calm, but mumbles when her name is called. She still does not respond to commands. Cr trending down 1.2. Medical: AMS Recommendation/Plan: Continue to hold all psy medications until lab normalize. Will assess patient daily to determine when to start her psy medications. Ativan challenge if patient still present catatonia like symptoms once lithium level normalize. Monitor patient's I/O's. Nephro is following patient. Will assess patient daily. Recommend delirium precautions below: 1. Frequently reorient patient and involve him/her in their care (simple explanations of procedures, tests, medications). 2. Lights on and shades open during daytime hours. 3. Try to avoid unnecessary interruptions to sleep during nighttime hours. 4. Obtain glasses, hearing aids from home if patient uses these at baseline. 5. Avoid medications that may exacerbate delirium (especially narcotics, barbiturates, ambien, lunesta, benzos, and medications with excessive anticholinergic properties). If possible, use another medication for pain.
[2017-12-26] MEDS ORDERED: KPHOS 45 MMOL in NACL 0.9% 500 ML 500 ML IV ONE (14:00)
[2017-12-26] MEDS: BENADRYL IM PRN (22:34)
[2017-12-27] MEDS: BENADRYL IM PRN (03:51)
[2017-12-27 07:33] LABS: BUN/Creatinine Ratio 11; Blood Urea Nitrogen 11 mg/dL (7-17); Hemolysis Index 0
[2017-12-27] MEDS: PHOS-NAK PO SCH ×3 (07:36→21:28)
[2017-12-27] MEDS: HEPARIN SUB-Q SCH ×3 (07:36→21:28)
[2017-12-27] MEDS: NOVOLOG SUB-Q SCH ×4 (08:18→23:27)
--- NOTE | 2017-12-27 10:41 | Progress Note ---
Subjective - Reason for Consult Consult date: 12/27/17 Reason for consult: Psychiatry Follow-up - Chief Complaint Chief complaint: "Jose" 57 years old female, brought in via EMS from [facility] facility for evaluation of altered mental status and decreased responsiveness for the last 2 days. Today the patient is calm during the assessment. This is the first time the patient was able to follow commands and answer some questions since her admission. She stated her name, , and squeezed my hand when asked. She nodded to "no" when asked was she suicidal/homicidal. Per collateral information from her sister Joan Christine who was at the bedside, she stated that the patient was manic and was transferred to a mental health facility prior to her admission to [facility]. She stated that she isn't aware of her sister having any medical issues. The patient nodded to "no" when asked about experiencing AVH's. Mental Status Exam - Vital signs Last Vital Signs Temp 98.4 F 12/27/17 09:04 Pulse 71 12/27/17 09:04 Resp 19 12/27/17 09:04 BP 165/82 12/27/17 09:04 Pulse Ox 100 12/27/17 09:04 - Exam Narrative exam: MSE: Appearance: calm, cooperative Behavior: regular eye contact Speech: intermittent speech Mood: "okay" Affect: congruent to mood Thought Process: circumstantial Thought Content: denies of SI/HI's and AVH's Motor Activity: sitting up in bed Cognition: A/O x2 Insight: variable Judgment: variable Assessment and Plan Impression: Per the record the patient has an hx of Bipolar DO. [place] trending down 1.2, the patient is improving. R/O Catatonia. Today the patient is calm and cooperative during the assessment. She is responding to commands. Cr trending down 1.0. Medical: AMS Recommendation/Plan: Continue 1013. Also, continue to hold all psy medications until lab normalize. Will assess patient daily to determine when to start her psy medications. Ativan challenge if patient still present catatonia like symptoms once lithium level normalize. Monitor patient's I/O's. Nephro is following patient. Will assess patient daily. Recommend delirium precautions below: 1. Frequently reorient patient and involve him/her in their care (simple explanations of procedures, tests, medications). 2. Lights on and shades open during daytime hours. 3. Try to avoid unnecessary interruptions to sleep during nighttime hours. 4. Obtain glasses, hearing aids from home if patient uses these at baseline. 5. Avoid medications that may exacerbate delirium (especially narcotics, barbiturates, ambien, lunesta, benzos, and medications with excessive anticholinergic properties). If possible, use another medication for pain.
[2017-12-27] MEDS: COLACE PO SCH ×2 (12:51→21:28)
[2017-12-27] MEDS: PEPCID PO SCH (12:51)
--- NOTE | 2017-12-27 15:26 | Progress Note ---
Assessment and Plan Assessment and plan: Acute renal failure - Nephrology consult appreciated, resolved with IV fluids Volume depletion - Repleted Bipolar disorder - Psychiatry is following Medication noncompliance Diabetes mellitus type 2 - Sliding-scale insulin DVT prophylaxis - On heparin Disposition -Patient is seen on 1012. Continued inpatient care. History Interval history: Patient was seen and this morning, patient doesn't talk much. Hospitalist Physical - Physical exam Narrative exam: Not in cardiopulmonary distress. The patient is obese. Vital signs as documented. Head exam is unremarkable. No scleral icterus . Neck is without jugular venous distension, thyromegaly, or carotid bruits. Lungs are clear to auscultation. Cardiac exam reveals regular rate and Rhythm. First and second heart sounds normal. No murmurs, rubs or gallops. Abdominal exam reveals normal bowel sounds, no masses, no organomegaly and no aortic enlargement. Extremities are nonedematous and both femoral and pedal pulses are normal. [employer] PERSON: Alert. - Constitutional Vitals: Temp Pulse Resp BP Pulse Ox 98.4 F 71 16 165/82 100 12/27/17 09:04 12/27/17 09:04 12/27/17 12:15 12/27/17 09:04 12/27/17 09:04 Results - Labs CBC & Chem 7: 12/25/17 02:58 12/27/17 04:00 Labs: Laboratory Last Values WBC 9.8 K/mm3 (4.5-11.0) 12/25/17 02:58 RBC 4.06 M/mm3 (3.65-5.03) 12/25/17 02:58 Hgb 12.2 gm/dl (10.1-14.3) 12/25/17 02:58 Hct 36.8 % (30.3-42.9) 12/25/17 02:58 MCV 91 fl (79-97) 12/25/17 02:58 MCH 30 pg (28-32) 12/25/17 02:58 MCHC 33 % (30-34) 12/25/17 02:58 RDW 13.5 % (13.2-15.2) 12/25/17 02:58 Plt Count 209 K/mm3 (140-440) 12/25/17 02:58 Lymph % (Auto) 22.8 % (13.4-35.0) 12/25/17 02:58 [place] % (Auto) 10.8 % (0.0-7.3) H 12/25/17 02:58 Eos % (Auto) 2.9 % (0.0-4.3) 12/25/17 02:58 Baso % (Auto) 1.1 % (0.0-1.8) 12/25/17 02:58 Lymph # 2.2 K/mm3 (1.2-5.4) 12/25/17 02:58 [place] # 1.1 K/mm3 (0.0-0.8) H 12/25/17 02:58 Eos # 0.3 K/mm3 (0.0-0.4) 12/25/17 02:58 Baso # 0.1 K/mm3 (0.0-0.1) 12/25/17 02:58 Seg Neutrophils % 62.4 % (40.0-70.0) 12/25/17 02:58 Seg Neutrophils # 6.1 K/mm3 (1.8-7.7) 12/25/17 02:58 Sodium 147 mmol/L (137-145) H 12/27/17 04:00 Potassium 3.8 mmol/L (3.6-5.0) 12/27/17 04:00 Chloride 109.0 mmol/L (98-107) H 12/27/17 04:00 Carbon Dioxide 21 mmol/L (22-30) L 12/27/17 04:00 Anion Gap 21 mmol/L 12/27/17 04:00 BUN 11 mg/dL (7-17) 12/27/17 04:00 Creatinine 1.0 mg/dL (0.7-1.2) 12/27/17 04:00 Estimated GFR > 60 ml/min 12/27/17 04:00 BUN/Creatinine Ratio 11 % 12/27/17 04:00 Glucose 165 mg/dL (65-100) H 12/27/17 04:00 POC Glucose 187 (70-105) H 12/27/17 12:25 Lactic Acid 1.60 mmol/L (0.7-2.0) 12/24/17 19:48 Calcium 9.0 mg/dL (8.4-10.2) 12/27/17 04:00 Phosphorus 3.00 mg/dL (2.5-4.5) D 12/27/17 04:00 Magnesium 1.50 mg/dL (1.7-2.3) L 12/27/17 04:00 Total Bilirubin 0.30 mg/dL (0.1-1.2) 12/24/17 18:31 AST 18 units/L (5-40) 12/24/17 18:31 ALT 31 units/L (7-56) 12/24/17 18:31 Alkaline Phosphatase 118 units/L (35-129) 12/24/17 18:31 Total Creatine Kinase 96 units/L (30-135) 12/26/17 04:41 Troponin T < 0.010 ng/mL (0.00-0.029) 12/24/17 18: Total Protein 6.8 g/dL (6.3-8.2) 12/24/17 18:31 Albumin 3.5 g/dL (3.9-5) L 12/24/17 18: Albumin/Globulin Ratio 1.1 % 12/24/17 18: Lipase 139 units/L (13-60) H 12/24/17 18:31 Urine Color Yellow (Yellow) 12/24/17 18:19 Urine Turbidity Clear (Clear) 12/24/17 18: Urine pH 5.0 (5.0-7.0) 12/24/17 18:19 Ur Specific [place] 1.018 (1.003-1.030) 12/24/17 18:19 Urine Protein <15 mg/dl mg/dL (Negative) 12/24/17 18: Urine Glucose (UA) Neg mg/dL (Negative) 12/24/17 18: Urine Ketones Tr mg/dL (Negative) 12/24/17 18:19 Urine Blood Neg (Negative) 12/24/17 18:19 Urine Nitrite Neg (Negative) 12/24/17 18: Urine Bilirubin Neg (Negative) 12/24/17 18: Urine Urobilinogen < 2.0 mg/dL (<2.0) 12/24/17 18:19 Ur Leukocyte Esterase Neg (Negative) 12/24/17 18:19 Urine WBC (Auto) 1.0 /HPF (0.0-6.0) 12/24/17 18: Urine RBC (Auto) 1.0 /HPF (0.0-6.0) 12/24/17 18:19 Hyaline Casts 3 /LPF 12/24/17 18:19 Urine Creatinine 89.7 mg/dL (0.1-20.0) H 12/25/17 22:20 Urine Sodium 81 mmol/L 12/25/17 22:20 Urine Total Protein 21 mg/dL (5-11.8) H 12/25/17 22:20 Urine HCG, Qual Negative (Negative) 12/24/17 18:19 [place] 1.1 mmol/L (0.0-1.2) 12/27/17 10:20
[2017-12-27] MEDS: NACL 0.45% 1000 ML 1,000 ML IV SCH (16:56)
--- NOTE | 2017-12-27 18:32 | Progress Note ---
Assessment and Plan - Patient Problems (1) Other acute kidney failure Current Visit: Yes Status: Acute Plan to address problem: Pre-renal azotemia versus acute tubular necrosis secondary to hypotension versus drug induced. Patient was on meloxicam and also lithium. Patient also received lisinopril with borderline low blood pressures and this combination could have caused kidney injury. Kidney function has improved back to normal. Follow electrolytes and renal function. (2) Hypomagnesemia Current Visit: Yes Status: Acute Plan to address problem: Supplement magnesium and follow up Level (3) Hyperosmolality and hypernatremia Current Visit: Yes Status: Acute Plan to address problem: Give hypotonic fluids. Encourage oral water intake (4) Other hypotension Current Visit: Yes Status: Acute Plan to address problem: Hold hypertensive medications and follow blood pressure (5) Metabolic acidosis Current Visit: Yes Status: Acute Plan to address problem: Follow bicarbonate level. Continue by mouth sodium bicarbonate (6) Encephalopathy Current Visit: Yes Status: Acute Plan to address problem: Monitor mental status closely (7) Type 2 diabetes mellitus without complications Current Visit: Yes Status: Acute Plan to address problem: Blood sugar management by primary attending. Need to hold metformin with GFR less than 30 mls/min. We'll consider restarting when kidney function improves (8) Essential (primary) hypertension Current Visit: Yes Status: Acute Plan to address problem: Blood pressure is stable. Continue holding Cabrera-inhibitor and then follow blood pressure. Subjective Date of service: 12/27/17 Principal diagnosis: acute kidney injury, lithium toxicity Interval history: Patient seen lying in bed. Patient is awake and oriented today. She answers questions appropriately. She has no appetite she states. Sister at the bedside Objective - Exam Narrative Exam: Obese middle-aged, comfortably lying in bed in no acute distress HEENT: Not cooperative with the exam Neck: Supple, no venous distention CVS: S1S2 RRR with no murmur, rub or gallop Chest: Clear to auscultation Abdomen: Protuberant, soft, nontender, no organomegaly, bowel sounds are present Extremities: No edema Neuro: Awakens but barely speaks and does not answer questions, was lying face down and after much urging, did turn around - Vital Signs Vital signs: Vital Signs - 12hr 12/27/17 12/27/17 09:04 12:15 Temperature 98.4 F Pulse Rate 71 Respiratory 19 16 Rate Blood Pressure 165/82 O2 Sat by Pulse 100 Oximetry - Lab 12/25/17 02:58 12/27/17 04:00 Most recent lab results Calcium 9.0 mg/dL (8.4-10.2) 12/27/17 04:00 Phosphorus 3.00 mg/dL (2.5-4.5) D 12/27/17 04:00 Magnesium 1.50 mg/dL (1.7-2.3) L 12/27/17 04:00 Urine Creatinine 89.7 mg/dL (0.1-20.0) H 12/25/17 22:20 Urine Sodium 81 mmol/L 12/25/17 22:20 Urine Total Protein 21 mg/dL (5-11.8) H 12/25/17 22:20
[2017-12-27] MEDS ORDERED: MAGNESIUM SULFATE 1 GM in NACL 0.9% 50 ML IV ONE (21:00)
[2017-12-28] MEDS: NACL 0.45% 1000 ML 1,000 ML IV SCH ×2 (05:45→22:46)
[2017-12-28] MEDS: HEPARIN SUB-Q SCH ×3 (05:46→22:43)
[2017-12-28 08:30] LABS: BUN/Creatinine Ratio 8; Blood Urea Nitrogen 7 mg/dL (7-17); Calcium 8.9 mg/dL (8.4-10.2); Hemolysis Index 10
[2017-12-28] MEDS: NOVOLOG SUB-Q SCH ×4 (08:51→22:44)
--- NOTE | 2017-12-28 10:35 | Progress Note ---
Assessment and Plan - Patient Problems (1) Other acute kidney failure Current Visit: Yes Status: Acute Plan to address problem: Pre-renal azotemia versus acute tubular necrosis secondary to hypotension versus drug induced. Patient was on meloxicam and also lithium. Patient also received lisinopril with borderline low blood pressures and this combination could have caused kidney injury. Kidney function has improved back to normal. Follow electrolytes and renal function. (2) Hypomagnesemia Current Visit: Yes Status: Acute Plan to address problem: Supplement magnesium and follow up Level (3) Hyperosmolality and hypernatremia Current Visit: Yes Status: Acute Plan to address problem: Give hypotonic fluids. Encourage oral water intake (4) Other hypotension Current Visit: Yes Status: Acute Plan to address problem: Hold hypertensive medications and follow blood pressure (5) Metabolic acidosis Current Visit: Yes Status: Acute Plan to address problem: Follow bicarbonate level. Continue by mouth sodium bicarbonate (6) Encephalopathy Current Visit: Yes Status: Acute Plan to address problem: Monitor mental status closely (7) Type 2 diabetes mellitus without complications Current Visit: Yes Status: Acute Plan to address problem: Blood sugar management by primary attending. Need to hold metformin with GFR less than 30 mls/min. We'll consider restarting when kidney function improves (8) Essential (primary) hypertension Current Visit: Yes Status: Acute Plan to address problem: Blood pressure is stable. Continue holding Cabrera-inhibitor and then follow blood pressure. Subjective Date of service: 12/28/17 Principal diagnosis: acute kidney injury, lithium toxicity Interval history: Patient seen lying in bed. Patient is awake and oriented today. She answers questions appropriately. She still did not eat much of her breakfast. Objective - Exam Narrative Exam: Obese middle-aged, comfortably lying in bed in no acute distress HEENT: Not cooperative with the exam Neck: Supple, no venous distention CVS: S1S2 RRR with no murmur, rub or gallop Chest: Clear to auscultation Abdomen: Protuberant, soft, nontender, no organomegaly, bowel sounds are present Extremities: No edema Neuro: Awakens but barely speaks and does not answer questions, was lying face down and after much urging, did turn around - Vital Signs Vital signs: Vital Signs - 12hr 12/28/17 07:36 Temperature 99.3 F Pulse Rate 78 Respiratory 20 Rate Blood Pressure 151/100 O2 Sat by Pulse 97 Oximetry - Lab 12/25/17 02:58 12/28/17 07:20 Most recent lab results Calcium 8.9 mg/dL (8.4-10.2) 12/28/17 07:20 Phosphorus 3.00 mg/dL (2.5-4.5) D 12/27/17 04:00 Magnesium 1.50 mg/dL (1.7-2.3) L 12/27/17 04:00 Urine Creatinine 89.7 mg/dL (0.1-20.0) H 12/25/17 22:20 Urine Sodium 81 mmol/L 12/25/17 22:20 Urine Total Protein 21 mg/dL (5-11.8) H 12/25/17 22:20
[2017-12-28] MEDS: PEPCID PO SCH (11:25)
[2017-12-28] MEDS: COLACE PO SCH ×2 (11:26→22:43)
--- NOTE | 2017-12-28 16:15 | Progress Note ---
Assessment and Plan Assessment and plan: Acute renal failure - Nephrology consult appreciated, resolved with IV fluids Volume depletion - Repleted Bipolar disorder - Psychiatry is following Medication noncompliance Diabetes mellitus type 2 - Sliding-scale insulin [place] toxicity DVT prophylaxis - On heparin Disposition -Patient is seen on 1012. Continued inpatient care. - Patient is medically stable for discharge. History Interval history: Patient was seen and this morning, patient was alert and oriented, patient say she is feeling ok. Hospitalist Physical - Physical exam Narrative exam: Not in cardiopulmonary distress. The patient is obese. Vital signs as documented. Head exam is unremarkable. No scleral icterus . Neck is without jugular venous distension, thyromegaly, or carotid bruits. Lungs are clear to auscultation. Cardiac exam reveals regular rate and Rhythm. First and second heart sounds normal. No murmurs, rubs or gallops. Abdominal exam reveals normal bowel sounds, no masses, no organomegaly and no aortic enlargement. Extremities are nonedematous and both femoral and pedal pulses are normal. 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 - Constitutional Vitals: Temp Pulse Resp BP Pulse Ox 99.3 F 78 20 151/100 97 12/28/17 07:36 12/28/17 07:36 12/28/17 07:36 12/28/17 07:36 12/28/17 07:36 Results - Labs CBC & Chem 7: 12/25/17 02:58 12/28/17 07:20 Labs: Laboratory Last Values WBC 9.8 K/mm3 (4.5-11.0) 12/25/17 02:58 RBC 4.06 M/mm3 (3.65-5.03) 12/25/17 02:58 Hgb 12.2 gm/dl (10.1-14.3) 12/25/17 02:58 Hct 36.8 % (30.3-42.9) 12/25/17 02:58 MCV 91 fl (79-97) 12/25/17 02:58 MCH 30 pg (28-32) 12/25/17 02:58 MCHC 33 % (30-34) 12/25/17 02:58 RDW 13.5 % (13.2-15.2) 12/25/17 02:58 Plt Count 209 K/mm3 (140-440) 12/25/17 02:58 Lymph % (Auto) 22.8 % (13.4-35.0) 12/25/17 02:58 [place] % (Auto) 10.8 % (0.0-7.3) H 12/25/17 02:58 Eos % (Auto) 2.9 % (0.0-4.3) 12/25/17 02:58 Baso % (Auto) 1.1 % (0.0-1.8) 12/25/17 02:58 Lymph # 2.2 K/mm3 (1.2-5.4) 12/25/17 02:58 [place] # 1.1 K/mm3 (0.0-0.8) H 12/25/17 02:58 Eos # 0.3 K/mm3 (0.0-0.4) 12/25/17 02:58 Baso # 0.1 K/mm3 (0.0-0.1) 12/25/17 02:58 Seg Neutrophils % 62.4 % (40.0-70.0) 12/25/17 02:58 Seg Neutrophils # 6.1 K/mm3 (1.8-7.7) 12/25/17 02:58 Sodium 146 mmol/L (137-145) H 12/28/17 07:20 Potassium 3.9 mmol/L (3.6-5.0) 12/28/17 07:20 Chloride 109.4 mmol/L (98-107) H 12/28/17 07:20 Carbon Dioxide 21 mmol/L (22-30) L 12/28/17 07:20 Anion Gap 20 mmol/L 12/28/17 07:20 BUN 7 mg/dL (7-17) 12/28/17 07:20 Creatinine 0.9 mg/dL (0.7-1.2) 12/28/17 07:20 Estimated GFR > 60 ml/min 12/28/17 07:20 BUN/Creatinine Ratio 8 % 12/28/17 07:20 Glucose 220 mg/dL (65-100) H 12/28/17 07:20 POC Glucose 200 (70-105) H 12/28/17 11:37 Lactic Acid 1.60 mmol/L (0.7-2.0) 12/24/17 19:48 Calcium 8.9 mg/dL (8.4-10.2) 12/28/17 07:20 Phosphorus 3.00 mg/dL (2.5-4.5) D 12/27/17 04:00 Magnesium 1.50 mg/dL (1.7-2.3) L 12/27/17 04:00 Total Bilirubin 0.30 mg/dL (0.1-1.2) 12/24/17 18:31 AST 18 units/L (5-40) 12/24/17 18:31 ALT 31 units/L (7-56) 12/24/17 18:31 Alkaline Phosphatase 118 units/L (35-129) 12/24/17 18:31 Total Creatine Kinase 96 units/L (30-135) 12/26/17 04:41 Troponin T < 0.010 ng/mL (0.00-0.029) 12/24/17 18: Total Protein 6.8 g/dL (6.3-8.2) 12/24/17 18:31 Albumin 3.5 g/dL (3.9-5) L 12/24/17 18:31 Albumin/Globulin Ratio 1.1 % 12/24/17 18:31 Lipase 139 units/L (13-60) H 12/24/17 18:31 Urine Color Yellow (Yellow) 12/24/17 18: Urine Turbidity Clear (Clear) 12/24/17 18: Urine pH 5.0 (5.0-7.0) 12/24/17 18:19 Ur Specific [place] 1.018 (1.003-1.030) 12/24/17 18:19 Urine Protein <15 mg/dl mg/dL (Negative) 12/24/17 18: Urine Glucose (UA) Neg mg/dL (Negative) 12/24/17 18: Urine Ketones Tr mg/dL (Negative) 12/24/17 18:19 Urine Blood Neg (Negative) 12/24/17 18: Urine Nitrite Neg (Negative) 12/24/17 18: Urine Bilirubin Neg (Negative) 12/24/17 18: Urine Urobilinogen < 2.0 mg/dL (<2.0) 12/24/17 18:19 Ur Leukocyte Esterase Neg (Negative) 12/24/17 18:19 Urine WBC (Auto) 1.0 /HPF (0.0-6.0) 12/24/17 18:19 Urine RBC (Auto) 1.0 /HPF (0.0-6.0) 12/24/17 18:19 Hyaline Casts 3 /LPF 12/24/17 18:19 Urine Creatinine 89.7 mg/dL (0.1-20.0) H 12/25/17 22:20 Urine Sodium 81 mmol/L 12/25/17 22:20 Urine Total Protein 21 mg/dL (5-11.8) H 12/25/17 22:20 Urine HCG, Qual Negative (Negative) 12/24/17 18:19 [place] 1.1 mmol/L (0.0-1.2) 12/27/17 10:20
[2017-12-29] MEDS: HEPARIN SUB-Q SCH ×3 (06:05→22:38)
[2017-12-29 07:05] LABS: BUN/Creatinine Ratio 8; Blood Urea Nitrogen 6 mg/dL (7-17); Calcium 8.4 mg/dL (8.4-10.2); Hemolysis Index 4
[2017-12-29] MEDS ORDERED: MAGNESIUM SULFATE 2GM/50ML 2 GM/50 ML BAG IV ONE (09:00)
--- NOTE | 2017-12-29 09:01 | Progress Note ---
Assessment and Plan - Patient Problems (1) Other acute kidney failure Current Visit: Yes Status: Acute Plan to address problem: Pre-renal azotemia versus acute tubular necrosis secondary to hypotension versus drug induced. Patient was on meloxicam and also lithium. Patient also received lisinopril with borderline low blood pressures and this combination could have caused kidney injury. Kidney function has improved back to normal. Follow electrolytes and renal function. No further recommendations. We'll sign off (2) Hypomagnesemia Current Visit: Yes Status: Acute Plan to address problem: Supplement magnesium and follow up level periodically (3) Hyperosmolality and hypernatremia Current Visit: Yes Status: Acute Plan to address problem: Give hypotonic fluids. Encourage oral water intake (4) Other hypotension Current Visit: Yes Status: Acute Plan to address problem: Blood pressure is now high and we need to resume hypotensive medications (5) Metabolic acidosis Current Visit: Yes Status: Acute Plan to address problem: Follow bicarbonate level. Continue by mouth sodium bicarbonate (6) Encephalopathy Current Visit: Yes Status: Acute Plan to address problem: Monitor mental status closely (7) Type 2 diabetes mellitus without complications Current Visit: Yes Status: Acute Plan to address problem: Blood sugar management by primary attending. Need to hold metformin with GFR less than 30 mls/min. We'll consider restarting when kidney function improves (8) Essential (primary) hypertension Current Visit: Yes Status: Acute Plan to address problem: Blood pressure is now increasing. Resume hypotensive medications Subjective Date of service: 12/29/17 Principal diagnosis: acute kidney injury, lithium toxicity Interval history: Patient seen lying in bed. Patient is awake and oriented. She answers questions appropriately. She has no complaints Objective - Exam Narrative Exam: Obese middle-aged, comfortably sitting up in chair in no acute distress Neck: Supple, no venous distention CVS: S1S2 RRR with no murmur, rub or gallop Chest: Clear to auscultation Abdomen: Protuberant, soft, nontender, no organomegaly, bowel sounds are present Extremities: No edema Neuro: Awake, alert, appropriate - Vital Signs Vital signs: Vital Signs - 12hr 12/28/17 12/29/17 22:38 07:50 Temperature 99.2 F 97.8 F Pulse Rate 73 77 Respiratory 19 16 Rate Blood Pressure 177/95 151/93 O2 Sat by Pulse 100 99 Oximetry - Lab 12/25/17 02:58 12/29/17 06:11 Most recent lab results Calcium 8.4 mg/dL (8.4-10.2) 12/29/17 06:11 Phosphorus 2.40 mg/dL (2.5-4.5) L 12/29/17 06:11 Magnesium 1.20 mg/dL (1.7-2.3) L 12/29/17 06:11 Urine Creatinine 89.7 mg/dL (0.1-20.0) H 12/25/17 22:20 Urine Sodium 81 mmol/L 12/25/17 22:20 Urine Total Protein 21 mg/dL (5-11.8) H 12/25/17 22:20
[2017-12-29] MEDS: NOVOLOG SUB-Q SCH ×4 (09:12→22:43)
[2017-12-29] MEDS: ZESTRIL PO SCH (09:29)
[2017-12-29] MEDS: PEPCID PO SCH (09:29)
--- NOTE | 2017-12-29 10:28 | Progress Note ---
Subjective - Reason for Consult Consult date: 12/29/17 Reason for consult: Psychiatry Follow-up - Chief Complaint Chief complaint: "Hi" 57 years old female, brought in via EMS from [facility] facility for evaluation of altered mental status and decreased responsiveness for the last 2 days. Today the patient is calm and cooperative during the assessment. She was observed ambulating in her room. She was able to tell me her , current/past [place] President, and her current location. She was asked about eating her meals, she stated, "I don't like the food from the cafeteria." She stated that she would like to eat fruit if possible. She stated that her PCP Dr Arreguin manage her Bipolar DO. She stated that she remember wandering outside her home prior to her admission to the local hospital in her home town. She denies SI/HI's and AVH's. Mental Status Exam - Vital signs Last Vital Signs Temp 97.8 F 12/29/17 07:50 Pulse 77 12/29/17 07:50 Resp 16 12/29/17 07:50 BP 150/98 12/29/17 09:29 Pulse Ox 99 12/29/17 07:50 - Exam Narrative exam: MSE: Appearance: calm, cooperative Behavior: regular eye contact Speech: regular rate and tone Mood: "okay" Affect: congruent to mood Thought Process: logical Thought Content: denies of SI/HI's and AVH's Motor Activity: ambulatory Cognition: A/O x3 Insight: fair Judgment: fair Assessment and Plan Impression: Per the record the patient has an hx of Bipolar DO. [place] trending down 0.6. The patient is improving. Today the patient is calm and cooperative during the assessment. Cr trending down 0.8. Medical: [facility] Recommendation/Plan: Evaluate 1013 in 24 hours to determine proper dispo. Will contact family members to establish an appropriate discharge plan. The patient stated that her PCP Dr Arreguin manage her Bipolar DO. Monitor the patient's PO intake. Nephro is following patient.
[2017-12-29] MEDS: COLACE PO SCH ×2 (12:27→22:37)
--- NOTE | 2017-12-29 15:21 | Progress Note ---
Assessment and Plan Assessment and plan: Acute renal failure - Nephrology consult appreciated, resolved with IV fluids Volume depletion - Repleted, resolved Bipolar disorder - Psychiatry is following - Patient is delusional Medication noncompliance Diabetes mellitus type 2 with hyperglycemia - Sliding-scale insulin [place] toxicity - Resolved DVT prophylaxis - On heparin Disposition -Patient is seen on 1012. Continued inpatient care. - Patient is medically stable for discharge. History Interval history: Patient was seen and evaluated this morning, patient was alert but confused. Hospitalist Physical - Physical exam Narrative exam: Not in cardiopulmonary distress. The patient is obese. Vital signs as documented. Head exam is unremarkable. No scleral icterus . Neck is without jugular venous distension, thyromegaly, or carotid bruits. Lungs are clear to auscultation. Cardiac exam reveals regular rate and Rhythm. First and second heart sounds normal. No murmurs, rubs or gallops. Abdominal exam reveals normal bowel sounds, no masses, no organomegaly and no aortic enlargement. Extremities are nonedematous and both femoral and pedal pulses are normal. 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 - Constitutional Vitals: Temp Pulse Resp BP Pulse Ox 98.4 F 79 15 126/86 100 12/29/17 15:07 12/29/17 15:07 12/29/17 15:07 12/29/17 15:07 12/29/17 15:07 Results - Labs CBC & Chem 7: 12/25/17 02:58 12/29/17 06:11 Labs: Laboratory Last Values WBC 9.8 K/mm3 (4.5-11.0) 12/25/17 02:58 RBC 4.06 M/mm3 (3.65-5.03) 12/25/17 02:58 Hgb 12.2 gm/dl (10.1-14.3) 12/25/17 02:58 Hct 36.8 % (30.3-42.9) 12/25/17 02:58 MCV 91 fl (79-97) 12/25/17 02:58 MCH 30 pg (28-32) 12/25/17 02:58 MCHC 33 % (30-34) 12/25/17 02:58 RDW 13.5 % (13.2-15.2) 12/25/17 02:58 Plt Count 209 K/mm3 (140-440) 12/25/17 02:58 Lymph % (Auto) 22.8 % (13.4-35.0) 12/25/17 02:58 [place] % (Auto) 10.8 % (0.0-7.3) H 12/25/17 02:58 Eos % (Auto) 2.9 % (0.0-4.3) 12/25/17 02:58 Baso % (Auto) 1.1 % (0.0-1.8) 12/25/17 02:58 Lymph # 2.2 K/mm3 (1.2-5.4) 12/25/17 02:58 [place] # 1.1 K/mm3 (0.0-0.8) H 12/25/17 02:58 Eos # 0.3 K/mm3 (0.0-0.4) 12/25/17 02:58 Baso # 0.1 K/mm3 (0.0-0.1) 12/25/17 02:58 Seg Neutrophils % 62.4 % (40.0-70.0) 12/25/17 02:58 Seg Neutrophils # 6.1 K/mm3 (1.8-7.7) 12/25/17 02:58 Sodium 138 mmol/L (137-145) D 12/29/17 06:11 Potassium 3.6 mmol/L (3.6-5.0) 12/29/17 06:11 Chloride 101.2 mmol/L (98-107) 12/29/17 06:11 Carbon Dioxide 20 mmol/L (22-30) L 12/29/17 06:11 Anion Gap 20 mmol/L 12/29/17 06:11 BUN 6 mg/dL (7-17) L 12/29/17 06:11 Creatinine 0.8 mg/dL (0.7-1.2) 12/29/17 06:11 Estimated GFR > 60 ml/min 12/29/17 06:11 BUN/Creatinine Ratio 8 % 12/29/17 06:11 Glucose 207 mg/dL (65-100) H 12/29/17 06:11 POC Glucose 215 (70-105) H 12/29/17 12:30 Lactic Acid 1.60 mmol/L (0.7-2.0) 12/24/17 19:48 Calcium 8.4 mg/dL (8.4-10.2) 12/29/17 06:11 Phosphorus 2.40 mg/dL (2.5-4.5) L 12/29/17 06:11 Magnesium 1.20 mg/dL (1.7-2.3) L 12/29/17 06:11 Total Bilirubin 0.30 mg/dL (0.1-1.2) 12/24/17 18:31 AST 18 units/L (5-40) 12/24/17 18:31 ALT 31 units/L (7-56) 12/24/17 18:31 Alkaline Phosphatase 118 units/L (35-129) 12/24/17 18: Total Creatine Kinase 96 units/L (30-135) 12/26/17 04:41 Troponin T < 0.010 ng/mL (0.00-0.029) 12/24/17 18: Total Protein 6.8 g/dL (6.3-8.2) 12/24/17 18: Albumin 3.5 g/dL (3.9-5) L 12/24/17 18: Albumin/Globulin Ratio 1.1 % 12/24/17 18: Lipase 139 units/L (13-60) H 12/24/17 18:31 Urine Color Yellow (Yellow) 12/24/17 18: Urine Turbidity Clear (Clear) 12/24/17 18: Urine pH 5.0 (5.0-7.0) 12/24/17 18:19 Ur Specific [place] 1.018 (1.003-1.030) 12/24/17 18: Urine Protein <15 mg/dl mg/dL (Negative) 12/24/17 18: Urine Glucose (UA) Neg mg/dL (Negative) 12/24/17 18: Urine Ketones Tr mg/dL (Negative) 12/24/17 18: Urine Blood Neg (Negative) 12/24/17 18: Urine Nitrite Neg (Negative) 12/24/17 18: Urine Bilirubin Neg (Negative) 12/24/17 18: Urine Urobilinogen < 2.0 mg/dL (<2.0) 12/24/17 18:19 Ur Leukocyte Esterase Neg (Negative) 12/24/17 18: Urine WBC (Auto) 1.0 /HPF (0.0-6.0) 12/24/17 18:19 Urine RBC (Auto) 1.0 /HPF (0.0-6.0) 12/24/17 18:19 Hyaline Casts 3 /LPF 12/24/17 18:19 Urine Creatinine 89.7 mg/dL (0.1-20.0) H 12/25/17 22:20 Urine Sodium 81 mmol/L 12/25/17 22:20 Urine Total Protein 21 mg/dL (5-11.8) H 12/25/17 22:20 Urine HCG, Qual Negative (Negative) 12/24/17 18:19 [place] 0.6 mmol/L (0.0-1.2) 12/29/17 06:11
[2017-12-29] MEDS: LEVEMIR SUB-Q SCH ×2 (18:00→22:37)
[2017-12-30] MEDS: HEPARIN SUB-Q SCH ×2 (05:43→14:57)
[2017-12-30] MEDS: NOVOLOG SUB-Q SCH ×3 (08:59→17:41)
[2017-12-30] MEDS: PEPCID PO SCH (10:37)
[2017-12-30] MEDS: COLACE PO SCH (10:38)
[2017-12-30] MEDS: ZESTRIL PO SCH (10:39)
[2017-12-30] MEDS: LEVEMIR SUB-Q SCH ×2 (10:40→19:04)
--- NOTE | 2017-12-30 11:46 | Progress Note ---
Assessment and Plan Assessment and plan: Acute renal failure - Nephrology consult appreciated, resolved with IV fluids Volume depletion - Repleted, resolved Bipolar disorder, patient is delusional - Psychiatry is following - Patient is delusional Medication noncompliance Diabetes mellitus type 2 with hyperglycemia - Sliding-scale insulin [place] toxicity - Resolved Hypomanesemia DVT prophylaxis - On heparin Disposition -Patient is seen on 101. Continued inpatient care. - Patient is medically stable for discharge, Patient need psych management. History Interval history: Patient was seen and evaluated this morning, patient was alert but confused. She claimed she is the government of . Hospitalist Physical - Physical exam Narrative exam: Not in cardiopulmonary distress. The patient is obese. Vital signs as documented. Head exam is unremarkable. No scleral icterus . Neck is without jugular venous distension, thyromegaly, or carotid bruits. Lungs are clear to auscultation. Cardiac exam reveals regular rate and Rhythm. First and second heart sounds normal. No murmurs, rubs or gallops. Abdominal exam reveals normal bowel sounds, no masses, no organomegaly and no aortic enlargement. Extremities are nonedematous and both femoral and pedal pulses are normal. 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 - Constitutional Vitals: Temp Pulse Resp BP Pulse Ox 98.6 F 78 18 141/70 99 12/30/17 08:37 12/30/17 10:39 12/30/17 08:37 12/30/17 10:39 12/29/17 23:34 Results - Labs CBC & Chem 7: 12/25/17 02:58 12/29/17 06:11 Labs: Laboratory Last Values WBC 9.8 K/mm3 (4.5-11.0) 12/25/17 02:58 RBC 4.06 M/mm3 (3.65-5.03) 12/25/17 02:58 Hgb 12.2 gm/dl (10.1-14.3) 12/25/17 02:58 Hct 36.8 % (30.3-42.9) 12/25/17 02:58 MCV 91 fl (79-97) 12/25/17 02:58 MCH 30 pg (28-32) 12/25/17 02:58 MCHC 33 % (30-34) 12/25/17 02:58 RDW 13.5 % (13.2-15.2) 12/25/17 02:58 Plt Count 209 K/mm3 (140-440) 12/25/17 02:58 Lymph % (Auto) 22.8 % (13.4-35.0) 12/25/17 02:58 [place] % (Auto) 10.8 % (0.0-7.3) H 12/25/17 02:58 Eos % (Auto) 2.9 % (0.0-4.3) 12/25/17 02:58 Baso % (Auto) 1.1 % (0.0-1.8) 12/25/17 02:58 Lymph # 2.2 K/mm3 (1.2-5.4) 12/25/17 02:58 [place] # 1.1 K/mm3 (0.0-0.8) H 12/25/17 02:58 Eos # 0.3 K/mm3 (0.0-0.4) 12/25/17 02:58 Baso # 0.1 K/mm3 (0.0-0.1) 12/25/17 02:58 Seg Neutrophils % 62.4 % (40.0-70.0) 12/25/17 02:58 Seg Neutrophils # 6.1 K/mm3 (1.8-7.7) 12/25/17 02:58 Sodium 138 mmol/L (137-145) D 12/29/17 06:11 Potassium 3.6 mmol/L (3.6-5.0) 12/29/17 06:11 Chloride 101.2 mmol/L (98-107) 12/29/17 06:11 Carbon Dioxide 20 mmol/L (22-30) L 12/29/17 06:11 Anion Gap 20 mmol/L 12/29/17 06:11 BUN 6 mg/dL (7-17) L 12/29/17 06:11 Creatinine 0.8 mg/dL (0.7-1.2) 12/29/17 06:11 Estimated GFR > 60 ml/min 12/29/17 06:11 BUN/Creatinine Ratio 8 % 12/29/17 06:11 Glucose 207 mg/dL (65-100) H 12/29/17 06:11 POC Glucose 234 (70-105) H 12/30/17 05:52 Lactic Acid 1.60 mmol/L (0.7-2.0) 12/24/17 19:48 Calcium 8.4 mg/dL (8.4-10.2) 12/29/17 06:11 Phosphorus 2.40 mg/dL (2.5-4.5) L 12/29/17 06:11 Magnesium 1.20 mg/dL (1.7-2.3) L 12/29/17 06:11 Total Bilirubin 0.30 mg/dL (0.1-1.2) 12/24/17 18:31 AST 18 units/L (5-40) 12/24/17 18:31 ALT 31 units/L (7-56) 12/24/17 18:31 Alkaline Phosphatase 118 units/L (35-129) 12/24/17 18:31 Total Creatine Kinase 96 units/L (30-135) 12/26/17 04:41 Troponin T < 0.010 ng/mL (0.00-0.029) 12/24/17 18:31 Total Protein 6.8 g/dL (6.3-8.2) 12/24/17 18:31 Albumin 3.5 g/dL (3.9-5) L 12/24/17 18:31 Albumin/Globulin Ratio 1.1 % 12/24/17 18:31 Lipase 139 units/L (13-60) H 12/24/17 18:31 Urine Color Yellow (Yellow) 12/24/17 18:19 Urine Turbidity Clear (Clear) 12/24/17 18:19 Urine pH 5.0 (5.0-7.0) 12/24/17 18:19 Ur Specific [place] 1.018 (1.003-1.030) 12/24/17 18:19 Urine Protein <15 mg/dl mg/dL (Negative) 12/24/17 18:19 Urine Glucose (UA) Neg mg/dL (Negative) 12/24/17 18:19 Urine Ketones Tr mg/dL (Negative) 12/24/17 18:19 Urine Blood Neg (Negative) 12/24/17 18:19 Urine Nitrite Neg (Negative) 12/24/17 18:19 Urine Bilirubin Neg (Negative) 12/24/17 18:19 Urine Urobilinogen < 2.0 mg/dL (<2.0) 12/24/17 18:19 Ur Leukocyte Esterase Neg (Negative) 12/24/17 18:19 Urine WBC (Auto) 1.0 /HPF (0.0-6.0) 12/24/17 18:19 Urine RBC (Auto) 1.0 /HPF (0.0-6.0) 12/24/17 18:19 Hyaline Casts 3 /LPF 12/24/17 18:19 Urine Creatinine 89.7 mg/dL (0.1-20.0) H 12/25/17 22:20 Urine Sodium 81 mmol/L 12/25/17 22:20 Urine Total Protein 21 mg/dL (5-11.8) H 12/25/17 22:20 Urine HCG, Qual Negative (Negative) 12/24/17 18:19 [place] 0.6 mmol/L (0.0-1.2) 12/29/17 06:11
[2017-12-30] MEDS ORDERED: MAG-OX PO SCH (12:00)
--- NOTE | 2017-12-30 12:19 | Progress Note ---
Subjective - Reason for Consult Consult date: 12/30/17 Reason for consult: Psychiatry Follow-up - Chief Complaint Chief complaint: "Hi" 57 years old female, brought in via EMS from [facility] facility for evaluation of altered mental status and decreased responsiveness for the last 2 days. Today the patient is calm and cooperative during the assessment. She stated that she wanted to make a correction reference the doctor who manage her medications in her home town. She stated that Dr Mayers manage her medications, not Dr Arreguin. She stated that she does not have a psychiatrist. Per collateral information from her sister Joan Christine, the patient can be seen at [facility] in [place], [place], the patient's home town. The patient denies SI/HI's and AVH's. She stated that she ate her dinner last night, but wanted fruit for breakfast this morning. Mental Status Exam - Vital signs Last Vital Signs Temp 98.6 F 12/30/17 08:37 Pulse 78 12/30/17 10:39 Resp 18 12/30/17 08:37 BP 141/70 12/30/17 10:39 Pulse Ox 99 12/29/17 23:34 - Exam Narrative exam: MSE: Appearance: calm, cooperative Behavior: regular eye contact Speech: regular rate and tone Mood: "okay" Affect: congruent to mood Thought Process: logical Thought Content: denies of SI/HI's and AVH's Motor Activity: ambulatory Cognition: A/O x3 Insight: appropriate Judgment: appropriate Assessment and Plan Impression: Per the record the patient has an hx of Bipolar DO. Today the patient is calm and cooperative during the assessment. Cr trending down 0.8. Medical: [facility] Recommendation/Plan: Rescind 1013. I confirmed that the patient can follow up with [facility] in [place], [place] for outpatient psy services. Also, the patient was given a referral for outpatient psy at [facility] if she stays in the local area.
[2017-12-30 16:15] VITALS: BP 117/79
--- NOTE | 2017-12-31 08:05 | Discharge Summary ---
Providers - Providers Date of Admission: 12/24/17 21:48 Date of discharge: 12/30/17 Attending physician: JOHNIE MARTIN MD 12/24/17 22:32 Consult to Mental Health [CONS] Routine Reason For Exam: bipolar disorder Place consult to:: Mental health Notified:: y Was contact made?: Yes 12/25/17 12:01 Consult to Physician [CONS] Routine Consulting Provider: ELVIRA DE LUNA Reason For Exam: martha Place consult to:: dr. 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 The patient was not interested to talk and history was obtained from her sister. Patient is advised to [facility] a week ago after she stopped taking her bipolar medications. Patient showed improvement. Since the last 2 days patient refused to eat and drink. Patient become more withdrawn. In the emergency department had a blood pressure was very low, and had a BUN and creatinine was elevated. Patient was resuscitated with 2 bouts of normal saline and her blood pressure normalized. Patient's admitted for the management of acute renal failure. Review of system couldn't be obtained. Patient was admitted to the floor on 1013, patient was managed with IV fluids , patient had lithium toxicity. Nephrology consult appreciated. Mental health followed the patient once the patient was off 1013 they recommend to discharge the patient. Didn't get any psych medications while inpatient or at discharge. They recommend to have O/P followup. I have a discussion with patient's sister on the phone and she said she has an appointment with her psych with her psychiatrist. Per her sister the patient is at her baseline and happy to take her home. Patient and family advised to continue her medication at home and held the psych medications until she see her psychiatrist in 3 days. patient was hemodynamically stable at the sridhar of discharge. Disposition: DC-01 TO HOME OR SELFCARE Time spent for discharge: 35 minutes - Discharge Diagnoses (1) Acute psychosis Status: Acute (2) Acute renal failure Status: Acute (3) Altered mental status Status: Acute (4) Encephalopathy Status: Acute (5) Essential (primary) hypertension Status: Chronic (6) Metabolic acidosis Status: Chronic (7) Other acute kidney failure Status: Acute (8) Other hypotension Status: Acute (9) Type 2 diabetes mellitus without complications Status: Chronic (10) Bipolar 1 disorder Status: Chronic Core Measure Documentation - Palliative Care Palliative Care/ Comfort Measures: Not Applicable - Core Measures Any of the following diagnoses?: none Exam - Physical Exam Narrative exam: Not in cardiopulmonary distress. The patient is obese. Vital signs as documented. Head exam is unremarkable. No scleral icterus . Neck is without jugular venous distension, thyromegaly, or carotid bruits. Lungs are clear to auscultation. Cardiac exam reveals regular rate and Rhythm. First and second heart sounds normal. No murmurs, rubs or gallops. Abdominal exam reveals normal bowel sounds, no masses, no organomegaly and no aortic enlargement. Extremities are nonedematous and both femoral and pedal pulses are normal. 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 - Constitutional Vitals: Temp Pulse Resp BP Pulse Ox 98.2 F 80 18 117/79 97 12/30/17 16:14 12/30/17 16:14 12/30/17 16:14 12/30/17 16:14 12/30/17 16:14 Plan Activity: no restrictions Weight Bearing Status: Full Weight Bearing Diet: low cholesterol, low salt, diabetic Additional Instructions: patient's family confirm that she has follow up with her psychiatry in 3 days Follow up with: CAREN CARSON MD [Primary Care Provider] - 7 Days
== END 2017-12-30 20:00 | disposition home or self-care (01) | DRG 682 ==
LOC: ED 18:04 → EEVIPCON 21:48 → 3A 21:48
PROVIDERS: ADMIT Internal Medicine; ATTEND Internal Medicine
DX: N17.0 Acute kidney failure with tubular necrosis (principal); G93.40 Encephalopathy, unspecified; F23 Brief psychotic disorder; E87.2 Acidosis; E87.0 Hyperosmolality and hypernatremia; I10 Essential (primary) hypertension; F31.9 Bipolar disorder, unspecified; E11.40 Type 2 diabetes mellitus with diabetic neuropathy, unspecified; E86.1 Hypovolemia; R63.0 Anorexia; I95.89 Other hypotension; E11.65 Type 2 diabetes mellitus with hyperglycemia; T56.891A Toxic effect of other metals, accidental (unintentional), initial encounter; E86.9 Volume depletion, unspecified; Z91.14 Patient's other noncompliance with medication regimen; Z68.39 Body mass index [BMI] 39.0-39.9, adult; Y92.89 Other specified places as the place of occurrence of the external cause; Z82.49 Family history of ischemic heart disease and other diseases of the circulatory system; Z83.3 Family history of diabetes mellitus
CPT/HCPCS: 36415; 70450; 74176; 80048; 80053; 80178; 81001; 81025; 82140; 82550; 82570; 82962; 83690; 83735; 84100; 84156; 84300; 84484; 85025; 87040; 93005; 93010; 96361; 96374; 96375; J1200; J1644; J1815; J1818; J2405; J3475; J7030; J7040